=== PATIENT | female | born 1980 | race Caucasian/White ===

== ENCOUNTER → 2016-10-29 | Outpatient (CLI) | payer BC ==
[~2016-10-29] MED LIST: AMPH20TA2 PO; CHOL500049 PO; FLUO20CA42 PO; HYDR-3812 PO; HYDR-3875 PO; NITR-65 PO; PHEN-640 PO; PROG100C6 PO; PROMETHAZINE INJ 25 MG/ML (PHENERGAN) AMP ONE; TAMS0.4C98 PO
--- NOTE | 2016-10-29 14:38 | Diagnostic Imaging Report ---
INDICATION: Right flank pain. KUB 2:45 PM. Gallbladder appears to be surgically absent. There is ossification of the cartilaginous portion of the anterior ribs. Renal shadows appear normal. There are no calculi seen in either kidney. There are multiple small phleboliths in the pelvis. IMPRESSION: Unremarkable abdomen. Dictated by: Dictated on workstation # [id number]
== END ==
LOC: RAD 14:18
PROVIDERS: ATTEND Urology
DX: R10.31 Right lower quadrant pain (principal); Z90.49 Acquired absence of other specified parts of digestive tract
CPT/HCPCS: 74000

== ENCOUNTER 2016-10-30 05:51 | Outpatient (CLI) | payer BC ==
[~2016-10-30] VITALS: Ht 165.1 cm; Wt 74.8 kg
[2016-10-30] MEDS ORDERED: PROG100C6 PO ×2 (10:28)
[2016-10-30] MEDS ORDERED: CHOL500049 PO ×2 (10:28)
[2016-10-30] MEDS ORDERED: FLUO20CA42 PO ×2 (10:28)
[2016-10-31] MEDS ORDERED: HYDR-3812 PO ×2 (10:16)
[2016-10-31] MEDS ORDERED: AMPH20TA2 PO ×2 (10:16)
[2016-10-31] MEDS ORDERED: HYDR-3875 PO ×2 (12:49)
[2016-10-31] MEDS ORDERED: NITR-65 PO ×2 (12:49)
[2016-10-31] MEDS ORDERED: TAMS0.4C98 PO ×2 (12:49)
[2016-10-31] MEDS ORDERED: PHEN-640 PO ×2 (12:49)
== END 2016-10-30 10:37 ==
LOC: PREOP 05:51
PROVIDERS: ATTEND Urology
DX: Z01.818 Encounter for other preprocedural examination (principal); N20.1 Calculus of ureter

== ENCOUNTER 2016-10-31 08:42 | Day surgery (SDC) | payer BC ==
[~2016-10-31] VITALS: Ht 165.1 cm; Wt 74.8 kg
[~2016-10-31 08:42] MED LIST changes: -AMPH20TA2 PO; -HYDR-3812 PO; -HYDR-3875 PO; -NITR-65 PO; -PHEN-640 PO; -PROMETHAZINE INJ 25 MG/ML (PHENERGAN) AMP ONE; -TAMS0.4C98 PO
[2016-10-31 08:48] VITALS: BP 140/94
[2016-10-31] MEDS ORDERED: LEVOFLOXACIN 250 MG/50 ML IVPB 50 ML ONE (08:54)
[2016-10-31] MEDS ORDERED: LACTATED RINGERS 1,000 ML IV PRN (09:02)
[2016-10-31] MEDS ORDERED: CATHETER FLUSH 10 ML SYR IV PRN (09:15)
[2016-10-31] MEDS ORDERED: fentaNYL INJECTION 100 MCG/2 ML AMP IV ONE (09:15)
[2016-10-31] MEDS ORDERED: LEVOFLOXACIN 250 MG/D5W 50 ML (PRE-MIX) IV ONE (09:15)
--- NOTE | 2016-10-31 09:22 | Progress Note-Pre Operative ---
Pre-Operative Progress Note H&P Reviewed The H&P was reviewed, patient examined and no changes noted. Date Seen by Provider: Oct 31, 2016 Time Seen by Provider: : Date H&P Reviewed: Oct 31, 2016 Time H&P Reviewed: : Pre-Operative Diagnosis: RT DISTAL URETERAL STONES AND BILATERAL FLANK PAINS BHARAT MOORE MD Oct 31, 2016 9:22 am
[2016-10-31] MEDS ORDERED: ONDANSETRON 4 MG/2 ML (SDV) Z0FRAN ONE ×2 (09:32→10:29)
[2016-10-31] MEDS ORDERED: DEXAMETHASONE PF 10 MG/ML (DECADRON) VIAL ONE (09:32)
[2016-10-31] MEDS ORDERED: SEVOFLURANE (ULTANE) 15 ML INHAL SOLN ONE ×2 (09:32→10:16)
[2016-10-31] MEDS ORDERED: proPOfol 200 MG/20 ML (DIPRIVAN) VIAL IV ONE (09:32)
[2016-10-31] MEDS ORDERED: LIDOCAINE PF 2% 5 ML (XYLOCAINE) VIAL ONE (09:32)
[2016-10-31] MEDS ORDERED: MIDAZOLAM 2 MG/2 ML (VERSED) VIAL ONE (09:32)
[2016-10-31] MEDS ORDERED: LACTATED RINGERS 1,000 ML IV ONE (09:32)
[2016-10-31] MEDS ORDERED: fentaNYL INJECTION 100 MCG/2 ML AMP ONE (09:32)
--- NOTE | 2016-10-31 09:46 | Diagnostic Imaging Report ---
Supine abdomen at 9:23 AM. INDICATION: Preop for ESWL. 2 views were obtained. The previous exam of 10/29/2016, failed to show any sign of nephrolithiasis. There were multiple small calcifications in the pelvis, particularly on the left. On this exam there is still no definite evidence for a calculus overlying either kidney or the expected paths of the ureters. The calcific densities in the pelvis in the posterior are again visualized and no different. There is some gas in both the large and small bowel in a nonspecific fashion. There is no sign of a bowel obstruction. There is no mass or organomegaly. Surgical clips are seen in the right upper quadrant. The osseous structures are intact. IMPRESSION: 1. There is still no evidence for a calculus overlying either kidney. If further evaluation for nephrolithiasis is desired, then CT would be recommended. 2. There is no acute abnormality of the abdomen. Dictated by: Dictated on workstation # [id number]
[2016-10-31] MEDS ORDERED: NEOSTIGMINE (BLOXIVERZ ) 1 MG/1ML 10 ML VIAL ONE (10:16)
[2016-10-31] MEDS ORDERED: GLYCOPYRROLATE 0.2 MG/ML (ROBINUL) 2 ML VIAL ONE (10:16)
[2016-10-31] MEDS ORDERED: AMPH20TA2 PO (10:16)
[2016-10-31] MEDS ORDERED: HYDR-3812 PO (10:16)
[2016-10-31] MEDS ORDERED: morphine INJ 10 MG/ML 1ML (SYR OR VIAL) ONE (10:30)
[2016-10-31] MEDS ORDERED: HYDROmorphone (DILAUDID) 2 MG/ML VIAL ONE (10:43)
[2016-10-31] MEDS: PROMETHAZINE INJ 25 MG/ML (PHENERGAN) AMP IVP PRN ×2 (10:44→10:48)
[2016-10-31] MEDS: HYDROmorphone (DILAUDID) 2 MG/ML VIAL IVP PRN ×4 (10:50→11:20)
[2016-10-31] MEDS ORDERED: KETOROLAC 30 MG/ML VIAL ONE (10:50)
--- NOTE | 2016-10-31 10:51 | Progress Note-Post Operative ---
Post-Operative Progess Note Surgeon (s)/Dock Guard (s) Surgeon BHARAT MOORE MD Dock Guard: N/A Pre-Operative Diagnosis RT DISTAL URETERAL STONES AND BILATERAL FLANK PAINS Post-Operative Diagnosis SAME Procedure & Operative Findings Date of Procedure 10/31/16 Procedure Performed/Findings CYSTO, RT URETEROSCOPY, BILATERAL RETROGRADE UROGRAM, AND RT JJ STENT Anesthesia Type GENERAL Estimated Blood Loss Estimated blood loss (mL): N/A Specimens/Packing Specimens Removed N/A Packing: N/A BHARAT MOORE MD Oct 31, 2016 10:51 am
--- NOTE | 2016-10-31 10:52 | Discharge Inst-Urology ---
Discharge Inst-Urology Discharge Medications New, Converted, or Re-newed RX: RX on Chart Patient Instructions/Follow Up Plan Please make appointment to been seen in office in 1 week for cysto and removal of stent KUB on way home Increase oral fluids for 48 hours and then as needed. Diet and Activity as tolerated. If questions or concerns contact your physician Or seek help at emergency department. BHARAT MOORE MD Oct 31, 2016 10:52 am
[2016-10-31] MEDS ORDERED: KETOROLAC 30 MG/ML VIAL IVP ONE (11:00)
[2016-10-31] MEDS ORDERED: PHENAZOPYRIDINE 100 MG (PYRIDIUM) TABLET PO ONE (11:45)
[2016-10-31] MEDS ORDERED: NITR-65 PO (12:49)
[2016-10-31] MEDS ORDERED: HYDR-3875 PO (12:49)
[2016-10-31] MEDS ORDERED: TAMS0.4C98 PO (12:49)
[2016-10-31] MEDS ORDERED: PHEN-640 PO (12:49)
--- NOTE | 2016-10-31 13:18 | Diagnostic Imaging Report ---
INDICATION: Left ureteric stent placement Portable supine views of the abdomen are obtained. Overall bowel gas pattern is within normal limits. There is no evidence of free intraperitoneal gas or pneumatosis. There are numerous calcified phleboliths in the pelvis, greater on the left. No other definite pathologic calcification is seen although portions of the urinary tract are obscured by overlying bowel. There is a stent device coiled within the bladder lumen. IMPRESSION: Catheter coiled in the bladder lumen may represent ureteric stent. Otherwise, no acute abnormality is identified. Dictated by: Dictated on workstation # [id number]
--- NOTE | 2016-10-31 14:09 | OPERATIVE REPORT ---
DATE OF SERVICE: 10/31/2016 PREOPERATIVE DIAGNOSES: Right distal ureteral stone and bilateral flank pain. POSTOPERATIVE DIAGNOSES: Right distal ureteral stone and bilateral flank pain. OPERATIVE PROCEDURES: Cystoscopy, right ureteroscopy, bilateral retrograde urogram and insertion of right double J-stent. SURGEON: Primitivo Moore MD ANESTHESIA: General: COMPLICATIONS: None. PROCEDURE IN DETAIL: Under satisfactory general anesthesia, the patient in the lithotomy position, genitalia were prepped and draped in usual sterile fashion. A 25-Dominican cystoscope was introduced in the bladder. The bladder was essentially normal. Ureteric orifices normal in shape, size, configuration with clear efflux equally bilaterally. I went ahead and dilated the right ureteral orifice in the middle portion to accommodate a 6.9 Dominican semi-rigid ureteroscope. I went to the junction of the proximal and mid ureter bypassing the presumed area of stones and did not see any stone in antegrade and retrograde fashion. I went ahead and backed up all the way down to the very distal ureter and injected contrast. There was no filling defect and complete emptying of the ureter upon withdrawal of the ureteroscope. We went ahead and removed ureteroscope and inserted a cystoscope, performed a left retrograde. Again, no filling defect and complete emptying of the system. To be on the safe side, I elected to leave a stent on the right side in case the stones move more proximal to dilate the ureter and allow passage of the stent either around it or after we remove it if there are deep stones still there. So, I went ahead and passed a 6-Dominican 26 cm double J stent guided fluoroscopically all the way to the right renal pelvis, removed the guidewire and the stent was seen nicely proximally fluoroscopically and distally endoscopically. I emptied the bladder, removed the cystoscope. The patient tolerated the procedure and anesthesia well and was sent to recovery room in stable condition. PLAN: Remove the stent cystoscopically at the office in one week and manage accordingly. Job ID: [id number] DocumentID: [id number] Dictated Date: 10/31/2016 10:55:05 Sales Representative Facility Services Date: 10/31/2016 13:02:49 Dictated By: PRIMITIVO MOORE MD
== END 2016-10-31 13:10 | disposition home or self-care (01) ==
LOC: SDC 08:42
PROVIDERS: ATTEND Urology
DX: N20.1 Calculus of ureter (principal); F32.9 Major depressive disorder, single episode, unspecified; F41.9 Anxiety disorder, unspecified; Z79.899 Other long term (current) drug therapy
CPT/HCPCS: 74000; 84703; 87081

== ENCOUNTER → 2016-11-08 | Outpatient (CLI) | payer BC ==
[~2016-11-08] MED LIST changes: +AMPH20TA2 PO; +HYDR-3812 PO; +HYDR-3875 PO; +NITR-65 PO; +PHEN-640 PO; +TAMS0.4C98 PO
--- NOTE | 2016-11-08 17:26 | Diagnostic Imaging Report ---
INDICATION: Nephrolithiasis. EXAM: KUB at 4:07 PM FINDINGS: The gallbladder appears surgically absent. The bowel gas pattern is normal. There are calcified phleboliths in the pelvis. No calculi are seen in the region of the kidneys. IMPRESSION: No acute abnormalities are seen in the abdomen. Dictated by: Dictated on workstation # [id number]
== END ==
LOC: RAD 15:41
PROVIDERS: ATTEND Urology
DX: Z87.442 Personal history of urinary calculi (principal)
CPT/HCPCS: 74000

== ENCOUNTER 2016-11-12 14:01 | Emergency (ER) | payer BC ==
[~2016-11-12] VITALS: Ht 165.1 cm; Wt 74.8 kg
[2016-11-12] MEDS ORDERED: ONDANSETRON 4 MG/2 ML (SDV) Z0FRAN IVP ONE (14:15)
[2016-11-12] MEDS ORDERED: NS 100 ML (IVPB) BAG IV ONE (14:15)
[2016-11-12] MEDS ORDERED: NS IV 1000 ML 1,000 ML IV SCH (14:15)
[2016-11-12] MEDS ORDERED: SULF1TAB35 PO (14:15)
[2016-11-12] MEDS ORDERED: KETOROLAC 30 MG/ML VIAL IVP ONE (14:15)
[2016-11-12] MEDS ORDERED: IOHEXOL 350 MG/ML 100 ML (OMNIPAQUE 350) VIAL IV ONE (14:15)
[2016-11-12 14:25] LABS: BILIRUBIN,URINE NEGATIVE (NEGATIVE); KETONES,URINE NEGATIVE (NEGATIVE); LEUKOCYTE ESTERASE ,URINE NEGATIVE (NEGATIVE); NITRITE,URINE NEGATIVE (NEGATIVE); PH,URINE 5 (5-9); PROTEIN,URINE NEGATIVE (NEGATIVE); UROBILINOGEN,URINE NORMAL (NORMAL)
--- NOTE | 2016-11-12 14:25 | ED Back Pain ---
General Chief Complaint: Back Problems Stated Complaint: KIDNEY STONES Nursing Triage Note: R FLANK PAIN X1 MONTH. HAS BEEN TREATED BY ER AND BY [facility] WITH LITTLE TO NO IMPROVEMENT. HAD RENAL STENT PLACED THAT "FELL OUT". Nursing Sepsis Screen: No Definite Risk Source of Information: Patient Exam Limitations: No Limitations History of Present Illness Time Seen by Provider: 14:23 Initial Comments To ER with right flank pain for the better half of this month. She was sent here from [place] by Dr. Moore. She had a ureteroscopy with stone basketing on 10/31/16. A stent was placed. The stent follow-up next-day patient states. She's continued to have constant but waxing and waning right flank pain with nausea and vomiting since then. Severity: Moderate Associated Symptoms: No lower back pain Allergies and Home Medications Allergies Coded Allergies: cephalexin (Verified Allergy, Intermediate, HIVES, 10/30/16) Home Medications Cholecalciferol (Vitamin D3) 50,000 Unit Capsule, 50,000 UNIT PO WEEKLY, ( Reported) Dextroamphetamine/Amphetamine 20 Mg Tablet, 20 MG PO DAILY, #1 Prescribed by: AIDEE QUINN on 10/31/16 1016 Fluoxetine HCl 20 Mg Capsule, 20 MG PO DAILY, (Reported) Hydrocodone/Acetaminophen 1 Each Tablet, 1-2 EACH PO Q4H, #30 Prescribed by: AIDEE QUINN on 10/31/16 1249 Phenazopyridine HCl 200 Mg Tablet, 1 TAB PO TID PRN for SPASMS, #30 Prescribed by: AIDEE QUINN on 10/31/16 1249 Progesterone,Micronized 100 Mg Capsule, 100 MG PO DAILY, (Reported) Sulfamethoxazole/Trimethoprim 1 Each Tablet, 1 EACH PO, (Reported) Constitutional: see HPI, chills, No fever EENTM: see HPI Respiratory: no symptoms reported Cardiovascular: no symptoms reported Gastrointestinal: nausea Genitourinary: see HPI, dysuria, pain Musculoskeletal: no symptoms reported Skin: no symptoms reported Past Mjamezd-Fonhra-Nszdoq Hx Patient Social History Alcohol Use: Denies Use Recreational Drug Use: No Smoking Status: Never a Smoker Recent Foreign Travel: No Contact w/Someone Who Travel: No Recent Infectious Disease Expo: No Recent Hopitalizations: No Immunizations Up To Date Date of Influenza Vaccine: Jan 23, 2016 Seasonal Allergies Seasonal Allergies: Yes Surgeries History of Surgeries: Yes (CS X2, SINUS SURGERY) Surgeries: Section, Gallbladder, Renal Respiratory History of Respiratory Disorde: No Cardiovascular History of Cardiac Disorders: No Neurological History of Neurological Disord: Yes Neurological Disorders: Headaches /Migraines Reproductive System Sexually Transmitted Disease: No HIV/AIDS: No Female Reproductive Disorders: Denies Genitourinary Genitourinary Disorders: Kidney Stones Gastrointestinal History of Gastrointestinal Di: Yes Gastrointestinal Disorders: Chronic Diarrhea Musculoskeletal History of Musculoskeletal Dis: No Endocrine History of Endocrine Disorders: No HEENT Loss of Vision: Bilateral Hearing Impairment: Denies Cancer History of Cancer: No Psychosocial History of Psychiatric Problem: Yes Behavioral Health Disorders: Anxiety, Depression Integumentary History of Skin or Integumenta: No Blood Transfusions History of Blood Disorders: No Adverse Reaction to a Blood Tr: No Physical Exam Vital Signs Vital Sign - Last 12Hours 11/12/16 14:06 Temp 97.2 Pulse 77 Resp 18 B/P (MAP) 140/98 Pulse Ox 99 Capillary Refill : Less Than 3 Seconds General Appearance: No Apparent Distress, WD/WN HEENT: PERRL/EOMI, TMs Normal Neck: Full Range of Motion, Normal Inspection Cardiovascular: Regular Rate, Rhythm, Normal Peripheral Pulses Respiratory: Normal Breath Sounds, No Accessory Muscle Use, No Respiratory Distress Gastrointestinal: Normal Bowel Sounds, Non Tender, Soft Neurologic/Psychiatric: Alert, Oriented x3, No Motor/Sensory Deficits Skin: Normal Color, Warm/Dry Progress/Results/Core Measures Results/Orders Lab Results Laboratory Tests Test 11/12/16 14:10 11/12/16 14:15 Range/Units Urine Color YELLOW Urine Clarity CLEAR Urine pH 5 5-9 Urine Specific [place] 1.020 1.016-1.022 Urine Protein NEGATIVE NEGATIVE Urine Glucose (UA) NEGATIVE NEGATIVE Urine Ketones NEGATIVE NEGATIVE Urine Nitrite NEGATIVE NEGATIVE Urine Bilirubin NEGATIVE NEGATIVE Urine Urobilinogen NORMAL NORMAL MG/DL Urine Leukocyte Esterase NEGATIVE NEGATIVE Urine RBC (Auto) NEGATIVE NEGATIVE Urine RBC NONE /HPF Urine WBC NONE /HPF Urine Squamous Epithelial Cells 5-10 /HPF Urine Crystals NONE /LPF Urine Bacteria NEGATIVE /HPF Urine Casts NONE /LPF Urine Mucus NEGATIVE /LPF Urine Culture Indicated NO White Blood Count 6.0 4.3-11.0 10^3/uL Red Blood Count 4.69 4.35-5.85 10^6/uL Hemoglobin 13.9 11.5-16.0 G/DL Hematocrit 41 35-52 % Mean Corpuscular Volume 88 80-99 FL Mean Corpuscular Hemoglobin 30 25-34 PG Mean Corpuscular Hemoglobin Concent 34 32-36 G/DL Red Cell Distribution Width 13.6 10.0-14.5 % Platelet Count 231 130-400 10^3/uL Mean Platelet Volume 10.2 7.4-10.4 FL Neutrophils (%) (Auto) 61 42-75 % Lymphocytes (%) (Auto) 29 12-44 % Monocytes (%) (Auto) 9 0-12 % Eosinophils (%) (Auto) 1 0-10 % Basophils (%) (Auto) 0 0-10 % Neutrophils # (Auto) 3.6 1.8-7.8 X 10^3 Lymphocytes # (Auto) 1.7 1.0-4.0 X 10^3 Monocytes # (Auto) 0.6 0.0-1.0 X 10^3 Eosinophils # (Auto) 0.0 0.0-0.3 10^3/uL Basophils # (Auto) 0.0 0.0-0.1 10^3/uL Sodium Level 138 135-145 MMOL/L Potassium Level 4.2 3.6-5.0 MMOL/L Chloride Level 106 98-107 MMOL/L Carbon Dioxide Level 21 21-32 MMOL/L Anion Gap 11 5-14 MMOL/L Blood Urea Nitrogen 14 7-18 MG/DL Creatinine 0.88 0.60-1.30 MG/DL Estimat Glomerular Filtration Rate > 60 BUN/Creatinine Ratio 16 Glucose Level 87 70-105 MG/DL Calcium Level 9.5 8.5-10.1 MG/DL Total Bilirubin 0.6 0.1-1.0 MG/DL Aspartate Amino Transf (AST/SGOT) 25 5-34 U/L Alanine Aminotransferase (ALT/SGPT) 129 H 0-55 U/L Alkaline Phosphatase 101 40-136 U/L Total Protein 7.3 6.4-8.2 GM/DL Albumin 4.4 3.2-4.5 GM/DL My Orders Orders - ANU BARRY SOC[employer] MARKETING ANALYST Cbc With Automated Diff (11/12/16 14:05) Comprehensive Metabolic Panel (11/12/16 14:05) Ua Culture If Indicated (11/12/16 14:05) Urine Bedside (11/12/16 14:05) Saline Lock/Iv-Start (11/12/16 14:05) Ct Abdomen/Pelvis W Wo (11/12/16 14:05) Iohexol Injection (Omnipaque 350 Mg/Ml 1 (11/12/16 14:15) Ns (Ivpb) (Sodium Chloride 0.9% Ivpb Bag (11/12/16 14:15) Ketorolac Injection (Toradol Injection) (11/12/16 14:15) Ondansetron Injection (Zofran Injectio (11/12/16 14:15) Ns Iv 1000 Ml (Sodium Chloride 0.9%) (11/12/16 14:15) Fentanyl Injection (Sublimaze Injection (11/12/16 14:30) Medications Given in ED Current Medications Medications Dose Ordered Sig/Zoltan Route Start Time Stop Time Status Last Admin Dose Admin Iohexol 100 ml ONCE ONCE IV 11/12/16 14:15 11/12/16 14:16 DC 11/12/16 14:42 100 ML Ketorolac Tromethamine 30 mg ONCE ONCE IVP 11/12/16 14:15 11/12/16 14:16 DC 11/12/16 14:25 30 MG Ondansetron HCl 4 mg ONCE ONCE IVP 11/12/16 14:15 11/12/16 14:16 DC 11/12/16 14:25 4 MG Sodium Chloride 100 ml ONCE ONCE IV 11/12/16 14:15 11/12/16 14:16 DC 11/12/16 14:43 80 ML Vital Signs/I&O Vital Sign - Last 12Hours 11/12/16 14:06 Temp 97.2 Pulse 77 Resp 18 B/P (MAP) 140/98 Pulse Ox 99 Blood Pressure Mean: 112 Diagnostic Imaging Diagonstic Imaging: CT Comments NAME: MAKSIM SAUCEDA [facility] REC#: [id number] PT STATUS: REG ER : 1980 PHYSICIAN: ANU BARRY APRN ADMIT DATE: 11/12/16/ER Draft Date of Exam:11/12/16 CT ABDOMEN/PELVIS W WO PROCEDURE: CT abdomen and pelvis with and without contrast. TECHNIQUE: Precontrast acquisitions were acquired through the abdomen and pelvis. Multiple contiguous axial images were obtained through the abdomen and pelvis after the administration of intravenous contrast. INDICATION: Right flank pain and nephrolithiasis with questionable UTI. FINDINGS: The heart size is normal. The lung bases are clear. The liver is normal in size without focal lesions. The gallbladder is surgically absent. There is no biliary ductal dilatation. The spleen is unremarkable. The pancreas and adrenal glands are unremarkable. There is no evidence of nephrolithiasis or obstructive uropathy. Both kidneys demonstrate normal perfusion. There is no definitive CT evidence of pyelonephritis. The aorta is nonaneurysmal. The bowel gas pattern is nonspecific. The appendix is unremarkable. The bladder is normal. There is no pelvic mass or adenopathy. There is a questionable right ovarian cyst. The osseous structures are unremarkable. IMPRESSION: No evidence of nephrolithiasis, pyelonephritis, or appendicitis. Questionable small right ovarian cyst. No other acute abnormality in the abdomen or pelvis. Dictated on workstation # [id number] Dict: 11/12/16 1507 Trans: 11/12/16 1528 [id number] Interpreted by: RICHARD NUNES Electronically signed by: Departure Communication (Admissions) Progress Notes 1539- the patient was given the normal results of her urine and lab. She states "that is fucking ridiculous!. 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 She states "you're nurse is a bitch, I'm going crazy!". I advised her this behavior would not be tolerated and she would be discharged. SHe states "no you get back in here!" Impression Impression: Primary Impression: nonspecific right flank pain Disposition: 01 HOME, SELF-CARE Condition: Stable Departure-Patient Inst. Decision time for Depature: 15:35 Referrals: FRED MONAE MD (PCP/Family) Primary Care Physician Patient Instructions: Flank Pain Add. Discharge Instructions: 1. Follow-up with your regular doctor for further evaluation of the source of your pain 2. Return to ER for any concerns 3. All discharge instructions reviewed with patient and/or family. Voiced understanding. Copy Copies To 1: BHARAT MOORE MD, PETER J APRN Nov 12, 2016 14:25
[2016-11-12] MEDS ORDERED: fentaNYL INJECTION 100 MCG/2 ML AMP IVP ONE (14:30)
[2016-11-12 14:34] LABS: BASOPHILS % (AUTO) 0 % (0-10); EOSINOPHILS % (AUTO) 1 % (0-10); LYMPHOCYTES # (AUTO) 1.7 X 10^3 (1.0-4.0); LYMPHOCYTES % (AUTO) 29 % (12-44); MEAN CORPUSCULAR HEMOGLOBIN 30 PG (25-34); MEAN CORPUSCULAR HGB CONC 34 G/DL (32-36); MEAN CORPUSCULAR VOLUME 88 FL (80-99); MEAN PLATELET VOLUME 10.2 FL (7.4-10.4); MONOCYTES # (AUTO) 0.6 X 10^3 (0.0-1.0); MONOCYTES % (AUTO) 9 % (0-12); NEUTROPHILS # (AUTO) 3.6 X 10^3 (1.8-7.8); NEUTROPHILS % (AUTO) 61 % (42-75); PLATELET COUNT 231 10^3/uL (130-400); RED BLOOD COUNT 4.69 10^6/uL (4.35-5.85); RED CELL DISTRIBUTION WIDTH 13.6 % (10.0-14.5)
[2016-11-12 14:46] LABS: ALANINE AMINOTRANSFERASE 129 U/L (0-55); ALBUMIN 4.4 GM/DL (3.2-4.5); ANION GAP 11 MMOL/L (5-14); ASPARTATE AMINO TRANSFERASE 25 U/L (5-34); BILIRUBIN,TOTAL 0.6 MG/DL (0.1-1.0); BLOOD UREA NITROGEN 14 MG/DL (7-18); BUN/CREATININE RATIO 16; CALCIUM 9.5 MG/DL (8.5-10.1); CARBON DIOXIDE 21 MMOL/L (21-32); CHLORIDE 106 MMOL/L (98-107); CREATININE SERUM 0.88 MG/DL (0.60-1.30); GFR ESTIMATED > 60; GLUCOSE 87 MG/DL (70-105); POTASSIUM 4.2 MMOL/L (3.6-5.0); SODIUM 138 MMOL/L (135-145); TOTAL PROTEIN 7.3 GM/DL (6.4-8.2)
--- NOTE | 2016-11-12 15:29 | Diagnostic Imaging Report ---
PROCEDURE: CT abdomen and pelvis with and without contrast. TECHNIQUE: Precontrast acquisitions were acquired through the abdomen and pelvis. Multiple contiguous axial images were obtained through the abdomen and pelvis after the administration of intravenous contrast. INDICATION: Right flank pain and nephrolithiasis with questionable UTI. FINDINGS: The heart size is normal. The lung bases are clear. The liver is normal in size without focal lesions. The gallbladder is surgically absent. There is no biliary ductal dilatation. The spleen is unremarkable. The pancreas and adrenal glands are unremarkable. There is no evidence of nephrolithiasis or obstructive uropathy. Both kidneys demonstrate normal perfusion. There is no definitive CT evidence of pyelonephritis. The aorta is nonaneurysmal. The bowel gas pattern is nonspecific. The appendix is unremarkable. The bladder is normal. There is no pelvic mass or adenopathy. There is a questionable right ovarian cyst. The osseous structures are unremarkable. IMPRESSION: No evidence of nephrolithiasis, pyelonephritis, or appendicitis. Questionable small right ovarian cyst. No other acute abnormality in the abdomen or pelvis. Dictated by: Dictated on workstation # [id number]
[2016-11-12 15:50] VITALS: BP 0/0
== END 2016-11-12 15:47 | disposition home or self-care (01) ==
LOC: EDUNIT# 14:01 → ER 14:04
DX: R10.9 Unspecified abdominal pain (principal); F41.9 Anxiety disorder, unspecified; F32.9 Major depressive disorder, single episode, unspecified; K52.9 Noninfective gastroenteritis and colitis, unspecified; G43.909 Migraine, unspecified, not intractable, without status migrainosus; Z87.442 Personal history of urinary calculi; Z87.59 Personal history of other complications of pregnancy, childbirth and the puerperium; Z96.0 Presence of urogenital implants
CPT/HCPCS: 36415; 74178; 80053; 81000; 84703; 85025; 96374; 96375

== ENCOUNTER → 2019-11-10 | Outpatient (CLI) | payer OTHER ==
[~2019-11-10] MED LIST changes: +ACHD5005 PO; -HYDR-3812 PO; +PROG100C11 PO; -PROG100C6 PO; +SULF1TAB35 PO; -TAMS0.4C98 PO; +TMSL.4C PO
== END ==
LOC: LAB FS 11:15
PROVIDERS: ATTEND Family Medicine
DX: R09.89 Other specified symptoms and signs involving the circulatory and respiratory systems (principal); Z20.828 Contact with and (suspected) exposure to other viral communicable diseases
CPT/HCPCS: 87635

== ENCOUNTER 2020-03-22 16:54 | Emergency (ER) | payer BC, OTHER ==
[~2020-03-22] VITALS: Ht 165 cm; Wt 85.0 kg
[2020-03-22 17:00] VITALS: BP 135/90
--- NOTE | 2020-03-22 17:36 | Diagnostic Imaging Report ---
INDICATION: COVID positive. Shortness of breath. FINDINGS: The lungs are well-aerated. There are no consolidated infiltrates at this time. Mild interstitial infiltrates are noted in the lung bases bilaterally. The heart is not enlarged. No evidence of pulmonary edema. No pneumothorax or pleural effusion. No bony abnormalities. IMPRESSION: Mild interstitial infiltrate noted in the lung bases bilaterally. Dictated by: Dictated on workstation # [id number]
--- NOTE | 2020-03-22 17:36 | ED Respiratory ---
General Chief Complaint: Respiratory Problems Stated Complaint: COVID+,PNEUMONIA,DYSPNEA Nursing Triage Note: PT REPORTS SOB WITH EXERTION AND UC CHEST XRAY SHOWED POSSIBLE PNEUMONIA. PT WAS SENT BY EBEN BECKFORD. PT REPORTS A MILD FEVER AT HOME. Source: patient Exam Limitations: no limitations History of Present Illness Date Seen by Provider: Mar 22, 2020 Time Seen by Provider: 17:00 Initial Comments 39-year-old female presents with symptoms related to COVID-19 infection. Symptom onset 8 days ago with upper respiratory and lower respiratory symptoms, cough and congestion with intermittent shortness of air. Diagnosed a few days later and was started on dexamethasone 6 mg daily as well as aspirin 81 mg daily, using an albuterol inhaler as needed as well as a steroid inhaler. Also taking ivermectin and has completed the first 2 doses of 0.2mg/kg. After taking a shower today she felt SOA and checked a pulse ox and it was in the mid 80's. Returned to 90's after a brief rest. Allergies and Home Medications Allergies Coded Allergies: cephalexin (Verified Allergy, Intermediate, HIVES, 10/30/16) Home Medications Cholecalciferol (Vitamin D3) 50,000 Unit Capsule, 50,000 UNIT PO WEEKLY, (Reported) Dextroamphetamine/Amphetamine 20 Mg Tablet, 20 MG PO DAILY Prescribed by: AIDEE QUINN on 10/31/16 1016 Fluoxetine HCl 20 Mg Capsule, 20 MG PO DAILY, (Reported) Hydrocodone/Acetaminophen 1 Each Tablet, 1-2 EACH PO Q4H Prescribed by: AIDEE QUINN on 10/31/16 1249 Phenazopyridine HCl 200 Mg Tablet, 1 TAB PO TID PRN for SPASMS Prescribed by: AIDEE QUINN on 10/31/16 1249 Progesterone,Micronized 100 Mg Capsule, 100 MG PO DAILY, (Reported) Patient Home Medication List Home Medication List Reviewed: Yes Review of Systems Review of Systems Constitutional: No chills, No fever, No malaise, No weakness EENTM: no symptoms reported Respiratory: cough, dyspnea on exertion, short of breath; No stridor, No wheezing Cardiovascular: No chest pain, No edema, No palpitations, No syncope Gastrointestinal: No abdominal pain, No loss of appetite, No nausea, No vomiting Skin: No change in color, No rash Psychiatric/Neurological: Denies Headache, Denies Numbness, Denies Paresthesia, Denies Weakness Past Dfaunsx-Yftmwx-Hpambp Hx Past Med/Social Hx: Reviewed Nursing Past Med/Soc Hx Patient Social History Alcohol Use: Denies Use Recreational Drug Use: No Smoking Status: Never a Smoker Recent Foreign Travel: No Contact w/Someone Who Travel: No Recent Infectious Disease Expo: Yes Recent Hopitalizations: No Physical Abuse: No Sexual Abuse: No Mistreated: No Fear: No Immunizations Up To Date Date of Influenza Vaccine: Jan 23, 2016 Seasonal Allergies Seasonal Allergies: No Past Medical History Surgeries: Yes (sinus surgery) Section, Gallbladder Respiratory: No Cardiac: Yes Hypertension Neurological: No Headaches /Migraines Female Reproductive Disorders: Denies Sexually Transmitted Disease: No HIV/AIDS: No Genitourinary: No Kidney Stones Gastrointestinal: No Chronic Diarrhea Musculoskeletal: No Endocrine: No HEENT: No Loss of Vision: Bilateral Hearing Impairment: Denies Cancer: No Psychosocial: Yes Depression Integumentary: No Blood Disorders: No Adverse Reaction/Blood Tranf: No Physical Exam Vital Signs - First Documented 03/22/20 17:00 Temp 36.5 Pulse 122 Resp 20 B/P (MAP) 135/90 (105) O2 Delivery Room Air Capillary Refill : Less Than 3 Seconds Height: 5'5.00" Weight: 165lbs. 0.0oz. 74.415355kv; 31.00 BMI Method:Stated General Appearance: WD/WN, no apparent distress HEENT: PERRL/EOMI, normal ENT inspection Neck: non-tender, supple Respiratory: chest non-tender, lungs clear, normal breath sounds, no respiratory distress, no accessory muscle use Cardiovascular: regular rate, rhythm, no edema, no gallop, no JVD Gastrointestinal: non tender, soft Extremities: normal range of motion, no pedal edema, no calf tenderness Neurologic/Psychiatric: alert, normal mood/affect, oriented x 3 Skin: normal color, warm/dry Progress/Results/Core Measures Suspected Sepsis Recent Fever Within 48 Hours: Yes Infection Criteria Present: Documented Infection New/Unexplained Altered Menta: No Sepsis Screen: Possible Severe Sepsis Risk SIRS Temperature: Pulse: 122 Respiratory Rate: 20 Blood Pressure 135 /90 Mean: 105 Results/Orders My Orders Orders - GEREMIAS ESQUEDA DO Chest 1 View Ap/Pa Only (03/22/20 17:02) Vital Signs/I&O 03/22/20 17:00 Temp 36.5 Pulse 122 Resp 20 B/P (MAP) 135/90 (105) O2 Delivery Room Air Capillary Refill : Less Than 3 Seconds Blood Pressure Mean: 105 Progress Note : Progress Note Well-appearing, no distress, oxygen saturations upper 90 percent on room air. Noted slight tachycardia without chest pain or shortness of air. Chest x-ray with mild patchy infiltrates consistent with COVID. Patient has been on a good medical regimen including ivermectin and steroids and seems to be progressing well only 1 week into the illness. Reassurance given, she was not taking any zinc and strongly encouraged her to start taking 100 mg daily today. Advised prompt follow-up if becoming increasingly short of air, feel lightheaded or dizzy or persistent oxygen desaturations especially at rest. 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 Departure Impression Primary Impression: COVID-19 Disposition: 01 HOME, SELF-CARE Condition: Stable Departure-Patient Inst. Decision time for Depature: 17:35 Referrals: FRED MONAE MD (PCP/Family) Primary Care Physician Patient Instructions: Coronavirus Disease 2019 (COVID-19) (DC) Add. Discharge Instructions: Take the following daily: Zinc 100mg Vitamin C 2,000mg Vitamin D 4,000iu Melatonin 10mg nightly All discharge instructions reviewed with patient and/or family. Voiced understanding. GEREMIAS ESQUEDA DO Mar 22, 2020 17:36
== END 2020-03-22 17:40 | disposition home or self-care (01) ==
LOC: EDUNIT# 16:54 → ER FS 16:56
DX: U07.1 COVID-19 (principal); I10 Essential (primary) hypertension; G43.909 Migraine, unspecified, not intractable, without status migrainosus; F32.9 Major depressive disorder, single episode, unspecified; Z88.1 Allergy status to other antibiotic agents
CPT/HCPCS: 71045

== ENCOUNTER 2020-03-23 15:23 | Inpatient (IN) | payer OTHER ==
[~2020-03-23] VITALS: Ht 165.1 cm; Wt 104.5 kg
[2020-03-23 16:23] VITALS: BP 119/71
[2020-03-23] MEDS ORDERED: REMDESIVIR INJ 200 MG in NS (IVPB) 210 ML IV NR (16:30)
[2020-03-23] MEDS ORDERED: CATHETER FLUSH 10 ML SYR IV PRN (16:45)
[2020-03-23] MEDS ORDERED: ALPRAZolam 1 MG (XANAX) TAB PO PRN (16:45)
[2020-03-23] MEDS ORDERED: ONDANSETRON 4 MG/2 ML (SDV) Z0FRAN IVP PRN ×2 (16:45→17:30)
[2020-03-23] MEDS: NS IV 1000 ML 1,000 ML IV SCH (16:53)
[2020-03-23] MEDS: ALPRAZolam 0.5 MG (XANAX) TAB PO PRN (16:54)
[2020-03-23] MEDS: KETOROLAC 30 MG/ML VIAL IVP PRN (16:54)
[2020-03-23] MEDS: guaiFENesin SYRUP 100 MG/5 ML 10 ML (ROBITUSSIN SF) PO PRN ×2 (16:54→21:34)
[2020-03-23] MEDS: ENOXAPARIN 40 MG/0.4 ML (LOVENOX) SYR SC SCH (16:58)
[2020-03-23 17:14] LABS: BASOPHILS % (AUTO) 0 % (0-10); EOSINOPHILS % (AUTO) 0 % (0-10); HEMATOCRIT 38 % (35-52); HEMOGLOBIN 12.9 g/dL (11.5-16.0); LYMPHOCYTES # (AUTO) 0.8 10^3/uL (1.0-4.0); LYMPHOCYTES % (AUTO) 11 % (12-44); MEAN CORPUSCULAR HEMOGLOBIN 29 pg (25-34); MEAN CORPUSCULAR HGB CONC 34 g/dL (32-36); MEAN CORPUSCULAR VOLUME 85 fL (80-99); MEAN PLATELET VOLUME 9.3 fL (9.0-12.2); MONOCYTES # (AUTO) 0.2 10^3/uL (0.0-1.0); MONOCYTES % (AUTO) 3 % (0-12); NEUTROPHILS # (AUTO) 5.7 10^3/uL (1.8-7.8); NEUTROPHILS % (AUTO) 85 % (42-75); PLATELET COUNT 221 10^3/uL (130-400); WHITE BLOOD COUNT 6.8 10^3/uL (4.3-11.0)
[2020-03-23 17:21] LABS: ALBUMIN 3.7 GM/DL (3.2-4.5); CHLORIDE 99 MMOL/L (98-107); POTASSIUM 3.6 MMOL/L (3.6-5.0); SODIUM 132 MMOL/L (135-145)
[2020-03-23 17:22] LABS: CALCIUM 8.4 MG/DL (8.5-10.1)
[2020-03-23 17:23] LABS: GLUCOSE 104 MG/DL (70-105)
[2020-03-23 17:24] LABS: TOTAL PROTEIN 6.8 GM/DL (6.4-8.2)
[2020-03-23 17:25] LABS: BILIRUBIN,TOTAL 0.3 MG/DL (0.1-1.0); CARBON DIOXIDE 19 MMOL/L (21-32)
[2020-03-23 17:27] LABS: ALKALINE PHOSPHATASE 55 U/L (40-136); CREATININE SERUM 0.68 MG/DL (0.60-1.30); GFR ESTIMATED > 60
[2020-03-23 17:28] LABS: BUN/CREATININE RATIO 19
[2020-03-23 17:30] LABS: ALANINE AMINOTRANSFERASE 26 U/L (0-55)
[2020-03-23] MEDS ORDERED: ZOLPIDEM 5 MG (AMBIEN) TAB PO PRN (17:30)
[2020-03-23 19:21] VITALS: BP 135/90
[2020-03-23 20:09] VITALS: BP 112/57
--- NOTE | 2020-03-23 20:42 | NUR ---
DR. OTTO CALLED AND UPDATED ON PT STATUS. PT IS SOB WITHOUT EXSERTION. PT O2SAT AT 87 ON 2LITERS. RT ROOM INCREASE OXYGEN TO 5LITER. O2 SAT IS NOW 91. INFORMED THIS RN IS MOVING PT TO A NEGATIVE PRESSURE ROOM AND MAY NEED VAPOTHERM. STATES UNDERSTANDING AND ORDER RECEIVED FOR VAPOTHERM.
[2020-03-23] MEDS ORDERED: RT-ALBUTEROL INHALER HFA (VENTOLIN HFA) 18 GM IH PRN (20:45)
[2020-03-23] MEDS ORDERED: RT-ALBUTEROL INHALER HFA (VENTOLIN HFA) 18 GM IH SCH (21:00)
[2020-03-23] MEDS: ACETAMINOPHEN 500 MG TAB (TYLENOL) PO PRN (21:34)
[2020-03-23] MEDS: MELATONIN 3 MG TABLET PO SCH (21:34)
[2020-03-23] MEDS ORDERED: CATHETER FLUSH 10 ML SYR IV SCH (22:00)
[2020-03-23] MEDS: RT-ALBUTEROL INHALER HFA (VENTOLIN HFA) 18 GM IH SCH (22:14)
[2020-03-23 23:58] VITALS: BP 116/56
[2020-03-24] VITALS (10 sets, daily range): BP systolic 93–123; BP diastolic 68–79
[2020-03-24] MEDS: NS IV 1000 ML 1,000 ML IV SCH ×2 (00:26→06:53)
[2020-03-24] MEDS: KETOROLAC 30 MG/ML VIAL IVP PRN ×5 (00:27→20:03)
[2020-03-24] MEDS: RT-ALBUTEROL INHALER HFA (VENTOLIN HFA) 18 GM IH SCH ×5 (04:28→19:26)
[2020-03-24] MEDS: guaiFENesin SYRUP 100 MG/5 ML 10 ML (ROBITUSSIN SF) PO PRN ×3 (04:28→17:56)
[2020-03-24] MEDS: ALPRAZolam 0.5 MG (XANAX) TAB PO PRN ×2 (05:12→20:02)
[2020-03-24 06:16] LABS: ALBUMIN 3.3 GM/DL (3.2-4.5); CHLORIDE 101 MMOL/L (98-107); POTASSIUM 3.2 MMOL/L (3.6-5.0); SODIUM 137 MMOL/L (135-145)
[2020-03-24 06:17] LABS: CALCIUM 8.1 MG/DL (8.5-10.1)
[2020-03-24 06:18] LABS: GLUCOSE 113 MG/DL (70-105)
[2020-03-24 06:19] LABS: TOTAL PROTEIN 6.1 GM/DL (6.4-8.2)
[2020-03-24 06:20] LABS: CARBON DIOXIDE 21 MMOL/L (21-32)
[2020-03-24 06:21] LABS: BILIRUBIN,TOTAL 0.3 MG/DL (0.1-1.0)
[2020-03-24 06:22] LABS: ALKALINE PHOSPHATASE 55 U/L (40-136); CREATININE SERUM 0.76 MG/DL (0.60-1.30); GFR ESTIMATED > 60
[2020-03-24 06:23] LABS: BUN/CREATININE RATIO 24
[2020-03-24 06:25] LABS: ALANINE AMINOTRANSFERASE 28 U/L (0-55)
[2020-03-24] MEDS: FLUoxetine HCL 20 MG (PROzac) CAP PO SCH (08:41)
--- NOTE | 2020-03-24 08:42 | Diagnostic Imaging Report ---
INDICATION: Shortness of air. COVID positive patient. COMPARISON: 03/22/2020 FINDINGS: Single frontal radiographic view of the chest was obtained and demonstrates significant interval development of scattered alveolar opacities superimposed on background diffuse interstitial prominence. There is no large effusion or pneumothorax. Lungs also show low inspiratory volumes. Cardiac silhouette and pulmonary vasculature are within normal limits. Osseous structures show no gross acute abnormalities. IMPRESSION: 1. Interval progression of significant bilateral diffuse infiltrates. Continued follow-up is advised. Dictated by: Dictated on workstation # [id number]
[2020-03-24] MEDS ORDERED: dexAMETHasone 6 MG TAB (DECADRON) PO SCH (09:00)
[2020-03-24] MEDS ORDERED: LORazepam INJ 2 MG/ML (ATIVAN) VIAL ONE (09:46)
--- NOTE | 2020-03-24 09:51 | NUR ---
this rn phoned dr. westbrook and informed of patient's anxiety and that we need the ativan order he had informed ole alonzo he would provide. this rn took telephone order for one time 1mg Ativan iv order.
--- NOTE | 2020-03-24 10:13 | Pulmonary Consultation ---
History of Present Illness History of Present Illness Date Seen by Provider: Mar 24, 2020 Time Seen by Provider: 10:08 Date of Admission Allergies and Home Medications Allergies Coded Allergies: cephalexin (Verified Allergy, Intermediate, HIVES, 10/30/16) Home Medications Cholecalciferol (Vitamin D3) 50,000 Unit Capsule, 50,000 UNIT PO WEEKLY, (Reported) Dextroamphetamine/Amphetamine 20 Mg Tablet, 20 MG PO DAILY Prescribed by: AIDEE QUINN on 10/31/16 1016 Fluoxetine HCl 20 Mg Capsule, 20 MG PO DAILY, (Reported) Hydrocodone/Acetaminophen 1 Each Tablet, 1-2 EACH PO Q4H Prescribed by: AIDEE QUINN on 10/31/16 1249 Phenazopyridine HCl 200 Mg Tablet, 1 TAB PO TID PRN for SPASMS Prescribed by: AIDEE QUINN on 10/31/16 1249 Progesterone,Micronized 100 Mg Capsule, 100 MG PO DAILY, (Reported) Past Rlzyrjs-Tnpzkv-Aoihhk Hx Patient Social History Alcohol Use: Occasionally Uses Alcohol Beverage of Choice: Beer, Wine Recreational Drug Use: No Recent Foreign Travel: No Contact w/Someone Who Travel: No Recent Infectious Disease Expo: Yes Recent Hopitalizations: No Immunizations Up To Date PED Vaccines UTD: No Date of Influenza Vaccine: Nov 23, 2019 Seasonal Allergies Seasonal Allergies: Yes Past Medical History Surgeries: Yes Section, Gallbladder Respiratory: No Cardiac: Yes Hypertension Neurological: No Headaches /Migraines Female Reproductive Disorders: Denies Sexually Transmitted Disease: No HIV/AIDS: No Genitourinary: No Kidney Stones Gastrointestinal: No Chronic Diarrhea Musculoskeletal: No Endocrine: No HEENT: No Loss of Vision: Bilateral Hearing Impairment: Denies Cancer: No Psychosocial: Yes Anxiety, PTSD, Depression Integumentary: No Blood Disorders: No Adverse Reaction/Blood Tranf: No Review of Systems Time Seen by Provider: 10:12 Sepsis Event Evaluation Height, Weight, BMI Height: 5'5.00" Weight: 165lbs. 0.0oz. 74.530762jj; 38.33 BMI Method:Stated Exam Exam Vital Signs Date Time Temp Pulse Resp B/P (MAP) Pulse Ox O2 Delivery O2 Flow Rate FiO2 03/24/20 08:39 37.5 03/24/20 07:50 38.2 109 22 115/79 (91) 94 Vapotherm 40.00 70.00 03/24/20 06:43 91 Vapotherm 40.00 70 03/24/20 04:51 95 Vapotherm 03/24/20 04:11 37.2 96 21 120/70 (87) 90 Nasal Cannula 2.00 03/23/20 23:58 37.2 105 21 116/56 (76) 92 Nasal Cannula 2.00 03/23/20 22:14 92 Nasal Cannula 5.00 03/23/20 21:00 Nasal Cannula 5.00 03/23/20 20:18 87 Nasal Cannula 1.00 03/23/20 20:09 37.4 99 20 112/57 (75) 93 Nasal Cannula 2.00 03/23/20 19:21 36.5 122 87 28 03/23/20 17:44 Nasal Cannula 2.00 03/23/20 17:36 37.9 03/23/20 16:54 38.8 03/23/20 16:23 38.8 115 20 119/71 94 Nasal Cannula 2.00 I & O 03/24/20 06:59 Intake Total 1250 ml Balance 1250 ml Height & Weight Height: 5'5.00" Weight: 165lbs. 0.0oz. 74.537082gv; 38.33 BMI Method:Stated Capillary Refill: Less Than 3 Seconds Results Lab Laboratory Tests 03/23/20 16:55 03/24/20 05:37 Assessment/Plan Assessment/Plan COVID PNA -Currently requiring Vapotherm 60% -Decadron -Remdesivir -CVP -Doubt bacterial PNA at this time -- No leukocytosis, normal PCT -Normal DDIMer Move pt to cardiac step down for close monitoring TORIN MARQUEZ DO Mar 24, 2020 10:12
[2020-03-24] MEDS ORDERED: LORazepam INJ 2 MG/ML (ATIVAN) VIAL IVP ONE (10:15)
[2020-03-24] MEDS ORDERED: KCL 20 MEQ TAB (K-DUR) PO NR (10:15)
[2020-03-24 10:22] LABS: ABG BASE EXCESS -1.3 MMOL/L (-2.5-2.5); ABG OXYGEN SATURATION 97 % (94-100); ABG PCO2 38 MMHG (35-45); ABG PO2 89 MMHG (79-93); ABG TCO2 23.9 MMOL/L (21.0-31.0)
[2020-03-24 10:25] LABS: ALLENS TEST YES-POS; INSPIRED O2 70%; PATIENT TEMP 37.6; VENTILATOR NO
--- NOTE | 2020-03-24 13:17 | History & Physical-Hospitalist ---
History of Present Illness HPI/Chief Complaint Comfort Pruitt is a 39-year-old female who presented with shortness of breath. She was recently diagnosed with COVID-19. She isn't having symptoms for about a week. 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 She is having some chest tightness. She had some diarrhea which is resolved. She has had some issues with her sense of smell. She denies any abdominal pain, nausea, or vomiting. She denies any leg swelling or pain. She had been taking Decadron, azithromycin, and some other supplements as an outpatient. Source: patient Exam Limitations: no limitations Date Seen 03/24/20 Time Seen by a Provider: 11:40 Attending Physician Misa Moore MD PCP Radha Garcia Aprn Referring Physician Date of Admission Mar 23, 2020 at 15:48 Home Medications & Allergies Home Medications Reviewed patient Home Medication Reconciliation performed by pharmacy medication reconciliations field technician and/or nursing. Patients Allergies have been reviewed. Allergies Allergies Coded Allergies cephalexin (Verified Allergy, Intermediate, HIVES, 10/30/16) Past Ixrfvmn-Ibzeqf-Mxybib Hx Past Med/Social Hx: Reviewed Nursing Past Med/Soc Hx Patient Social History Alcohol Use: Occasionally Uses Alcohol Beverage of Choice: Beer, Wine Recreational Drug Use: No Physical Abuse Screen: No Sexual Abuse: No Recent Foreign Travel: No Contact w/other who traveled: No Recent Hopitalizations: No Recent Infectious Disease Expo: Yes Immunizations Up To Date Pediatric: No Date of Influenza Vaccine: Nov 23, 2019 Seasonal Allergies Seasonal Allergies: Yes Past Medical History Surgeries: Section, Gallbladder Cardiac: Hypertension Neurological: Headaches /Migraines Sexually Transmitted Disease: No HIV/AIDS: No Female Reproductive Disorders: Denies Genitourinary: Kidney Stones Gastrointestinal: Chronic Diarrhea Loss of Vision: Bilateral Hearing Impairment: Denies Psychosocial: Anxiety, PTSD, Depression History of Blood Disorders: No Adverse Reaction to Blood Morris: No Review of Systems Constitutional: fever, malaise EENTM: no symptoms reported Respiratory: cough, short of breath Cardiovascular: no symptoms reported Gastrointestinal: diarrhea Genitourinary: no symptoms reported Musculoskeletal: no symptoms reported Skin: no symptoms reported Psychiatric/Neurological: No Symptoms Reported Physical Exam Physical Exam Vital Signs Vital Signs - First Documented 03/23/20 03/23/20 16:23 19:21 Temp 38.8 Pulse 115 Resp 20 B/P (MAP) 119/71 Pulse Ox 94 O2 Delivery Nasal Cannula O2 Flow Rate 2.00 FiO2 28 Capillary Refill : Less Than 3 Seconds Height, Weight, BMI Height: 5'5.00" Weight: 165lbs. 0.0oz. 74.572497bc; 38.33 BMI Method:Stated General Appearance: No Apparent Distress, Anxious, Obese HEENT: PERRL/EOMI, Pharynx Normal Neck: Normal Inspection, Supple Respiratory: Lungs Clear, Normal Breath Sounds, No Respiratory Distress Cardiovascular: Regular Rate, Rhythm, No Edema, No Murmur Gastrointestinal: Normal Bowel Sounds, Non Tender, Soft Extremity: Normal Inspection, Non Tender, No Pedal Edema Neurologic/Psychiatric: Alert, Oriented x3, No Motor/Sensory Deficits, Normal Mood/Affect Skin: Normal Color, Warm/Dry Results Results/Procedures Labs Laboratory Tests 03/23/20 16:55 03/24/20 05:37 Patient resulted labs reviewed. Imaging: Reviewed Imaging Report Assessment/Plan Admission Diagnosis Acute respiratory failure due to COVID-19 Admission Status: Inpatient Order (span 2 midnights) Reason for Inpatient Admission: Respiratory failure requiring supplemental oxygen COVID requiring IV medications Assessment and Plan Acute respiratory failure due to COVID-19 COVID positive at outside facility Chest xray with bilateral infiltrates D-dimer negative, repeat slightly increased Procalcitonin normal x2 ABG unremarkable BNP normal Started on Decadron Started on Remdesivir Awaiting convalescent plasma, agrees to EUA use Antibiotics not indicated Prophylactic Lovenox Requiring 2 L on admission, now needing Vapotherm Consult pulmonology, appreciate assistance Anxiety Ativan as needed Hypokalemia Monitor and replace as needed Obesity Clinically significant, no acute management needs DVT Prophylaxis: Lovenox Diagnosis/Problems Diagnosis/Problems (1) Acute respiratory failure due to COVID-19 Status: Acute (2) Anxiety Status: Acute (3) Hypokalemia Status: Acute (4) Obesity Status: Chronic Clinical Quality Measures DVT/VTE Risk/Contraindication: Risk Factor Score Per Nursin RFS Level Per Nursing on Admit: 3=High POLO HANCOCK MD Mar 24, 2020 13:17
[2020-03-24] MEDS ORDERED: NS IV 500 ML 500 ML ONE (13:53)
[2020-03-24] MEDS: ENOXAPARIN 40 MG/0.4 ML (LOVENOX) SYR SC SCH (15:37)
[2020-03-24] MEDS: REMDESIVIR INJ 100 MG in NS (IVPB) 230 ML IV SCH (15:37)
[2020-03-24] MEDS: MELATONIN 3 MG TABLET PO SCH (20:03)
[2020-03-25] MEDS: RT-ALBUTEROL INHALER HFA (VENTOLIN HFA) 18 GM IH SCH ×6 (01:04→21:32)
[2020-03-25] MEDS: guaiFENesin SYRUP 100 MG/5 ML 10 ML (ROBITUSSIN SF) PO PRN ×3 (01:12→18:03)
[2020-03-25] MEDS: KETOROLAC 30 MG/ML VIAL IVP PRN ×3 (01:45→20:40)
[2020-03-25 03:45] VITALS: BP 124/82
[2020-03-25] MEDS: ALPRAZolam 0.5 MG (XANAX) TAB PO PRN ×2 (03:47→20:40)
[2020-03-25] MEDS: ACETAMINOPHEN 500 MG TAB (TYLENOL) PO PRN (03:52)
[2020-03-25 03:54] LABS: BASOPHILS % (AUTO) 0 % (0-10); EOSINOPHILS % (AUTO) 0 % (0-10); HEMATOCRIT 34 % (35-52); HEMOGLOBIN 11.6 g/dL (11.5-16.0); LYMPHOCYTES % (AUTO) 13 % (12-44); MEAN CORPUSCULAR HEMOGLOBIN 29 pg (25-34); MEAN CORPUSCULAR HGB CONC 34 g/dL (32-36); MEAN CORPUSCULAR VOLUME 86 fL (80-99); MEAN PLATELET VOLUME 9.3 fL (9.0-12.2); MONOCYTES # (AUTO) 0.2 10^3/uL (0.0-1.0); MONOCYTES % (AUTO) 3 % (0-12); NEUTROPHILS # (AUTO) 6.8 10^3/uL (1.8-7.8); NEUTROPHILS % (AUTO) 84 % (42-75); PLATELET COUNT 207 10^3/uL (130-400); WHITE BLOOD COUNT 8.1 10^3/uL (4.3-11.0)
[2020-03-25 04:06] LABS: CHLORIDE 104 MMOL/L (98-107); POTASSIUM 3.6 MMOL/L (3.6-5.0); SODIUM 135 MMOL/L (135-145)
[2020-03-25 04:07] LABS: CALCIUM 7.9 MG/DL (8.5-10.1)
[2020-03-25 04:08] LABS: GLUCOSE 95 MG/DL (70-105); TOTAL PROTEIN 5.7 GM/DL (6.4-8.2)
[2020-03-25 04:09] LABS: CARBON DIOXIDE 21 MMOL/L (21-32)
[2020-03-25 04:10] LABS: BILIRUBIN,TOTAL 0.3 MG/DL (0.1-1.0)
[2020-03-25 04:11] LABS: PHOSPHORUS 2.4 MG/DL (2.3-4.7)
[2020-03-25 04:12] LABS: ALKALINE PHOSPHATASE 48 U/L (40-136); GFR ESTIMATED > 60
[2020-03-25 04:13] LABS: BUN/CREATININE RATIO 27
[2020-03-25 04:15] LABS: ALANINE AMINOTRANSFERASE 24 U/L (0-55); MAGNESIUM 1.8 MG/DL (1.6-2.4)
--- NOTE | 2020-03-25 05:19 | Pulmonary Progress Note ---
Subjective Time Seen by a Provider: 05:18 Subjective/Events-last exam PT is on 70% Vapotherm. Sepsis Event Evaluation Height, Weight, BMI Height: 5'5.00" Weight: 165lbs. 0.0oz. 74.094420yy; 38.33 BMI Method:Stated Focused Exam Lactate Level 03/23/20 18:40: Lactic Acid Level 1.08 Exam Exam Vital Signs Date Time Temp Pulse Resp B/P (MAP) Pulse Ox O2 Delivery O2 Flow Rate FiO2 03/25/20 03:52 38.1 03/25/20 03:48 38.1 03/25/20 03:45 95 22 124/82 (96) 94 Vapotherm 30.00 80.00 03/25/20 01:04 90 Vapotherm 30.00 70 03/25/20 00:41 78 03/24/20 23:47 36.6 90 20 109/79 (89) 100 Vapotherm 30.00 80.00 03/24/20 22:00 90 Vapotherm 30.00 55 03/24/20 21:00 94 Vapotherm 35.00 80 03/24/20 20:00 37.2 03/24/20 19:29 36.2 99 22 105/79 (88) 93 Vapotherm 30.00 80.00 03/24/20 19:26 90 Vapotherm 30.00 55 03/24/20 19:00 85 03/24/20 15:45 36.6 92 25 93/75 (81) 92 Vapotherm 30.00 55.00 03/24/20 15:36 36.4 88 22 122/77 92 Vapotherm 55 03/24/20 14:41 36.7 86 26 121/79 94 Vapotherm 55 03/24/20 14:26 36.4 93 21 121/73 90 Vapotherm 55 03/24/20 14:24 36.7 03/24/20 14:21 36.7 88 24 123/68 93 Vapotherm 30.00 55 03/24/20 14:01 92 Vapotherm 30.00 55 03/24/20 13:10 91 03/24/20 12:00 37.0 93 24 107/73 (84) 93 Vapotherm 30.00 55.00 03/24/20 11:20 37.6 03/24/20 10:50 94 Vapotherm 30.00 60 03/24/20 08:39 37.5 03/24/20 08:00 Nasal Cannula 03/24/20 07:50 38.2 109 22 115/79 (91) 94 Vapotherm 40.00 70.00 03/24/20 06:43 91 Vapotherm 40.00 70 I & O 03/25/20 07:00 Intake Total 2125 ml Output Total 500 ml Balance 1625 ml Height & Weight Height: 5'5.00" Weight: 165lbs. 0.0oz. 74.335006bt; 38.33 BMI Method:Stated General Appearance: No Apparent Distress, Anxious, Obese HEENT: PERRL/EOMI, Pharynx Normal Neck: Normal Inspection, Supple Respiratory: Lungs Clear, Normal Breath Sounds, No Respiratory Distress Cardiovascular: Regular Rate, Rhythm, No Edema, No Murmur Capillary Refill: Less Than 3 Seconds Extremity: Normal Inspection, Non Tender, No Pedal Edema Neurologic/Psychiatric: Alert, Oriented x3, No Motor/Sensory Deficits, Normal Mood/Affect Skin: Normal Color, Warm/Dry Results Lab Laboratory Tests 03/23/20 16:55 03/24/20 05:37 03/25/20 03:40 Assessment/Plan Assessment/Plan COVID PNA -Currently requiring Vapotherm 70% -Decadron -Remdesivir -Proning -CVP -Doubt bacterial PNA at this time -- No leukocytosis, normal PCT -Normal TORIN Jacobs DO Mar 25, 2020 05:19
[2020-03-25] MEDS ORDERED: POTASSIUM CL 10MEQ/50ML IVPB 50 ML IV SCH (06:00)
[2020-03-25] MEDS ORDERED: KCL 20 MEQ TAB (K-DUR) PO SCH (06:00)
[2020-03-25] MEDS ORDERED: MAGNESIUM 1 GM/100 ML IVPB 100 ML IV SCH (06:00)
[2020-03-25] MEDS ORDERED: KCL 20 MEQ TAB (K-DUR) PO ONE (06:00)
[2020-03-25 07:52] VITALS: BP 116/81
[2020-03-25] MEDS: FLUoxetine HCL 20 MG (PROzac) CAP PO SCH (08:31)
--- NOTE | 2020-03-25 10:56 | NUR ---
CM/SS: Attempted to visit with pt as to her current status and plan for discharge. Pt was resting and was on Vapotherm. This worker talked with MARISOL Rene, requesting that she let pt know if she needs anything that this worker is assigned to her, and will follow up at a later time. This worker will follow up.
[2020-03-25 11:07] VITALS: BP 107/66
--- NOTE | 2020-03-25 12:50 | Progress Note - Hospitalist ---
Subjective HPI/CC On Admission Date Seen by Provider: Mar 25, 2020 Time Seen by Provider: 09:00 Comfort Pruitt is a 39-year-old female who presented with shortness of breath. She was recently diagnosed with COVID-19. She isn't having symptoms for about a week. 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 She is having some chest tightness. She had some diarrhea which is resolved. She has had some issues with her sense of smell. She denies any abdominal pain, nausea, or vomiting. She denies any leg swelling or pain. She had been taking Decadron, azithromycin, and some other supplements as an outpatient. Subjective/Events-last exam She he is feeling a bit better today. Her shortness of breath is improved. She has not had any fevers yet today. She has been able to eat and drink a bit. Focused Exam Lactate Level 03/23/20 18:40: Lactic Acid Level 1.08 Objective Exam Vital Signs Vital Signs Date Time Temp Pulse Resp B/P (MAP) Pulse Ox O2 Delivery O2 Flow Rate FiO2 03/25/20 11:07 36.8 88 22 107/66 (80) 97 Vapotherm 30.00 85.00 03/25/20 10:37 85 Capillary Refill : Less Than 3 Seconds General Appearance: No Apparent Distress, Obese Respiratory: No Respiratory Distress, Wheezing Cardiovascular: No Edema, No Murmur, Tachycardia Gastrointestinal: Normal Bowel Sounds, Non Tender, Soft Extremity: Normal Inspection, Non Tender, No Pedal Edema Neurologic/Psychiatric: Alert, Oriented x3, No Motor/Sensory Deficits, Normal Mood/Affect Skin: Normal Color, Warm/Dry Results/Procedures Lab Laboratory Tests 03/25/20 03:40 Patient resulted labs reviewed. Imaging: Reviewed Imaging Report Assessment/Plan Assessment and Plan Assess & Plan/Chief Complaint Acute respiratory failure due to COVID-19 Decadron Remdesivir s/p convalescent plasma x1 Antibiotics not indicated Prophylactic Lovenox Continue Vapotherm Proning as tolerated Anxiety Ativan as needed Obesity Clinically significant, no acute management needs DVT Prophylaxis: Lovenox Hypokalemia, resolved Diagnosis/Problems Diagnosis/Problems (1) Acute respiratory failure due to COVID-19 Status: Acute (2) Anxiety Status: Acute (3) Hypokalemia Status: Resolved Resolution Date/Time: 03/25/20 @ 12:50 (4) Obesity Status: Chronic Clinical Quality Measures DVT/VTE Risk/Contraindication: Risk Factor Score Per Nursin RFS Level Per Nursing on Admit: 3=High POLO HANCOCK MD Mar 25, 2020 12:50
[2020-03-25 15:18] VITALS: BP 116/79
[2020-03-25] MEDS ORDERED: IBUP-1780 PO (15:35)
[2020-03-25] MEDS ORDERED: AZIT250T12 PO (15:35)
[2020-03-25] MEDS ORDERED: DEXA6TAB PO (15:35)
[2020-03-25] MEDS ORDERED: HYDR12.56 PO (15:35)
[2020-03-25] MEDS ORDERED: DEXT30TA12 PO (15:36)
[2020-03-25] MEDS ORDERED: BUTA1CAP41 PO (15:36)
[2020-03-25] MEDS ORDERED: ALPR0.5T7 PO (15:36)
[2020-03-25] MEDS ORDERED: CHOL500049 PO (15:36)
[2020-03-25] MEDS ORDERED: ALBU18HF2 INH (15:36)
[2020-03-25] MEDS ORDERED: FLUO40CA PO (15:36)
[2020-03-25] MEDS ORDERED: LISI10TA2 PO (15:36)
--- NOTE | 2020-03-25 15:43 | NUR ---
CALLED PT BUT DUE TO PT BEING ON VAPOTHERM SHE WAS NOT ABLE TO GO OVER HER MEDICATIONS. I TOLD HER I COULD MAKE A LIST OF WHAT I CAN SEE HER PHARMACY HAS FILLED AND I WOULD BRING IT UP TO HER. I TYPED A LIST USING THE EXT MED HISTORY AND PABLITO WENT OVER THE MEDICATIONS WITH THE PT AND WAS ABLE TO TELL ME HOW/WHEN SHE TAKES EACH. BACLOFEN AND MONTELUKAST WERE FIRST FILLED ON 03-10-2020 HOWEVER PT HAS NOT STARTED TAKING EITHER OF THESE MEDS ACCORDING TO THE PT THE FOLLOWING MEDS ARE PRN ONLY: IBUPROFEN 800MG, XANAX 0.5MG, BUTALBITAL AND ADDERALL
[2020-03-25] MEDS: ENOXAPARIN 40 MG/0.4 ML (LOVENOX) SYR SC SCH (16:59)
[2020-03-25] MEDS: REMDESIVIR INJ 100 MG in NS (IVPB) 230 ML IV SCH (16:59)
--- NOTE | 2020-03-25 17:32 | NUR ---
Updated pt friend Minal on pt condition at this time.
[2020-03-25 19:11] VITALS: BP 130/86
[2020-03-25] MEDS: MELATONIN 3 MG TABLET PO SCH (20:40)
[2020-03-26 01:00] VITALS: BP 133/83
[2020-03-26] MEDS: guaiFENesin SYRUP 100 MG/5 ML 10 ML (ROBITUSSIN SF) PO PRN ×5 (01:03→22:14)
[2020-03-26 04:00] VITALS: BP 122/82
[2020-03-26 04:00] LABS: BASOPHILS % (AUTO) 0 % (0-10); EOSINOPHILS % (AUTO) 0 % (0-10); HEMATOCRIT 36 % (35-52); HEMOGLOBIN 12.1 g/dL (11.5-16.0); LYMPHOCYTES # (AUTO) 1.1 10^3/uL (1.0-4.0); LYMPHOCYTES % (AUTO) 13 % (12-44); MEAN CORPUSCULAR HEMOGLOBIN 29 pg (25-34); MEAN CORPUSCULAR HGB CONC 34 g/dL (32-36); MEAN CORPUSCULAR VOLUME 87 fL (80-99); MEAN PLATELET VOLUME 9.2 fL (9.0-12.2); MONOCYTES # (AUTO) 0.3 10^3/uL (0.0-1.0); MONOCYTES % (AUTO) 4 % (0-12); NEUTROPHILS # (AUTO) 6.4 10^3/uL (1.8-7.8); NEUTROPHILS % (AUTO) 81 % (42-75); PLATELET COUNT 226 10^3/uL (130-400); WHITE BLOOD COUNT 7.9 10^3/uL (4.3-11.0)
[2020-03-26 04:13] LABS: CHLORIDE 102 MMOL/L (98-107); SODIUM 134 MMOL/L (135-145)
[2020-03-26 04:14] LABS: CALCIUM 8.2 MG/DL (8.5-10.1)
[2020-03-26 04:15] LABS: GLUCOSE 102 MG/DL (70-105); TOTAL PROTEIN 5.9 GM/DL (6.4-8.2)
[2020-03-26 04:16] LABS: CARBON DIOXIDE 21 MMOL/L (21-32)
[2020-03-26 04:17] LABS: BILIRUBIN,TOTAL 0.3 MG/DL (0.1-1.0)
[2020-03-26 04:18] LABS: ALKALINE PHOSPHATASE 57 U/L (40-136)
[2020-03-26 04:19] LABS: CREATININE SERUM 0.62 MG/DL (0.60-1.30); GFR ESTIMATED > 60
[2020-03-26 04:20] LABS: BUN/CREATININE RATIO 27
[2020-03-26 04:21] LABS: ALANINE AMINOTRANSFERASE 21 U/L (0-55)
[2020-03-26] MEDS: ALPRAZolam 0.5 MG (XANAX) TAB PO PRN ×3 (05:09→22:14)
[2020-03-26] MEDS: RT-ALBUTEROL INHALER HFA (VENTOLIN HFA) 18 GM IH SCH ×6 (05:18→22:30)
[2020-03-26] MEDS: FLUoxetine HCL 20 MG (PROzac) CAP PO SCH (08:31)
--- NOTE | 2020-03-26 11:04 | Progress Note - Hospitalist ---
Subjective HPI/CC On Admission Date Seen by Provider: Mar 26, 2020 Time Seen by Provider: 09:05 Comfort Pruitt is a 39-year-old female who presented with shortness of breath. She was recently diagnosed with COVID-19. She isn't having symptoms for about a week. 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 She is having some chest tightness. She had some diarrhea which is resolved. She has had some issues with her sense of smell. She denies any abdominal pain, nausea, or vomiting. She denies any leg swelling or pain. She had been taking Decadron, azithromycin, and some other supplements as an outpatient. Subjective/Events-last exam She is feeling a bit better today. She denies having any fevers. She thinks her shortness of breath is getting better. She saw the bit of a cough. She has been getting her appetite back. She denies any nausea or vomiting. She is not having any diarrhea. Focused Exam Lactate Level 03/23/20 18:40: Lactic Acid Level 1.08 Objective Exam Vital Signs Vital Signs Date Time Temp Pulse Resp B/P (MAP) Pulse Ox O2 Delivery O2 Flow Rate FiO2 03/26/20 09:30 90 Vapotherm 25.00 45 03/26/20 08:00 37.7 03/26/20 07:00 88 03/26/20 04:00 18 122/82 (95) Capillary Refill : Less Than 3 Seconds General Appearance: No Apparent Distress, Obese Respiratory: Lungs Clear, Normal Breath Sounds, No Respiratory Distress Cardiovascular: Regular Rate, Rhythm, No Edema, No Murmur Gastrointestinal: Normal Bowel Sounds, Non Tender, Soft Extremity: Normal Inspection, Non Tender, No Pedal Edema Neurologic/Psychiatric: Alert, Oriented x3, No Motor/Sensory Deficits, Normal Mood/Affect Skin: Normal Color, Warm/Dry Results/Procedures Lab Laboratory Tests 03/26/20 03:35 Patient resulted labs reviewed. Imaging: Reviewed Imaging Report Assessment/Plan Assessment and Plan Assess & Plan/Chief Complaint Acute respiratory failure due to COVID-19 Decadron Remdesivir s/p convalescent plasma x1 Antibiotics not indicated Prophylactic Lovenox Continue Vapotherm, requirements improving Proning as tolerated Back pain Oxycodone as needed while proning Anxiety Ativan as needed Obesity Clinically significant, no acute management needs DVT Prophylaxis: Lovenox Hypokalemia, resolved Diagnosis/Problems Diagnosis/Problems (1) Acute respiratory failure due to COVID-19 Status: Acute (2) Anxiety Status: Acute (3) Hypokalemia Status: Resolved Resolution Date/Time: 03/25/20 @ 12:50 (4) Obesity Status: Chronic Clinical Quality Measures DVT/VTE Risk/Contraindication: Risk Factor Score Per Nursin RFS Level Per Nursing on Admit: 3=High POLO HANCOCK MD Mar 26, 2020 11:04
[2020-03-26 12:00] VITALS: BP 115/66
[2020-03-26] MEDS ORDERED: PANTOPRAZOLE 40 MG (PROTONIX) TAB PO ONE (12:01)
[2020-03-26] MEDS: PANTOPRAZOLE 40 MG (PROTONIX) TAB PO SCH (12:29)
[2020-03-26 15:44] VITALS: BP 125/78
[2020-03-26] MEDS: REMDESIVIR INJ 100 MG in NS (IVPB) 230 ML IV SCH (17:34)
[2020-03-26] MEDS: ENOXAPARIN 40 MG/0.4 ML (LOVENOX) SYR SC SCH (17:34)
[2020-03-26 20:00] VITALS: BP 139/94
[2020-03-26] MEDS: DOCUSATE SODIUM 100 MG (COLACE) CAP PO SCH (22:13)
[2020-03-26] MEDS: MELATONIN 3 MG TABLET PO SCH (22:13)
[2020-03-27 00:59] VITALS: BP 118/85
[2020-03-27] MEDS: RT-ALBUTEROL INHALER HFA (VENTOLIN HFA) 18 GM IH SCH ×5 (02:34→23:12)
[2020-03-27 03:31] LABS: BASOPHILS % (AUTO) 0 % (0-10); EOSINOPHILS # (AUTO) 0.1 10^3/uL (0.0-0.3); EOSINOPHILS % (AUTO) 1 % (0-10); HEMATOCRIT 36 % (35-52); HEMOGLOBIN 11.9 g/dL (11.5-16.0); LYMPHOCYTES # (AUTO) 0.9 10^3/uL (1.0-4.0); LYMPHOCYTES % (AUTO) 13 % (12-44); MEAN CORPUSCULAR HEMOGLOBIN 29 pg (25-34); MEAN CORPUSCULAR HGB CONC 33 g/dL (32-36); MEAN CORPUSCULAR VOLUME 86 fL (80-99); MEAN PLATELET VOLUME 9.3 fL (9.0-12.2); MONOCYTES # (AUTO) 0.4 10^3/uL (0.0-1.0); MONOCYTES % (AUTO) 5 % (0-12); NEUTROPHILS # (AUTO) 4.9 10^3/uL (1.8-7.8); NEUTROPHILS % (AUTO) 75 % (42-75); PLATELET COUNT 243 10^3/uL (130-400); WHITE BLOOD COUNT 6.5 10^3/uL (4.3-11.0)
[2020-03-27 03:42] LABS: CHLORIDE 104 MMOL/L (98-107); POTASSIUM 3.7 MMOL/L (3.6-5.0); SODIUM 138 MMOL/L (135-145)
[2020-03-27 03:43] LABS: CALCIUM 8.1 MG/DL (8.5-10.1)
[2020-03-27 03:44] LABS: GLUCOSE 106 MG/DL (70-105); TOTAL PROTEIN 5.8 GM/DL (6.4-8.2)
[2020-03-27 03:45] LABS: CARBON DIOXIDE 22 MMOL/L (21-32)
[2020-03-27 03:46] LABS: BILIRUBIN,TOTAL 0.2 MG/DL (0.1-1.0)
[2020-03-27 03:48] LABS: ALKALINE PHOSPHATASE 53 U/L (40-136); CREATININE SERUM 0.64 MG/DL (0.60-1.30); GFR ESTIMATED > 60
[2020-03-27 03:49] LABS: BUN/CREATININE RATIO 20
[2020-03-27 03:51] LABS: ALANINE AMINOTRANSFERASE 22 U/L (0-55)
[2020-03-27 04:30] VITALS: BP 126/82
[2020-03-27] MEDS: guaiFENesin SYRUP 100 MG/5 ML 10 ML (ROBITUSSIN SF) PO PRN ×3 (05:39→19:52)
[2020-03-27 08:09] VITALS: BP 129/89
[2020-03-27] MEDS: PANTOPRAZOLE 40 MG (PROTONIX) TAB PO SCH (08:14)
[2020-03-27] MEDS: FLUoxetine HCL 20 MG (PROzac) CAP PO SCH (08:14)
[2020-03-27] MEDS: DOCUSATE SODIUM 100 MG (COLACE) CAP PO SCH ×2 (08:14→19:53)
[2020-03-27 12:14] VITALS: BP 121/78
--- NOTE | 2020-03-27 13:17 | Progress Note - Hospitalist ---
Subjective HPI/CC On Admission Date Seen by Provider: Mar 27, 2020 Time Seen by Provider: 10:30 Comfort Pruitt is a 39-year-old female who presented with shortness of breath. She was recently diagnosed with COVID-19. She isn't having symptoms for about a week. 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 She is having some chest tightness. She had some diarrhea which is resolved. She has had some issues with her sense of smell. She denies any abdominal pain, nausea, or vomiting. She denies any leg swelling or pain. She had been taking Decadron, azithromycin, and some other supplements as an outpatient. Subjective/Events-last exam She is feeling about the same. She is proning. She has been eating and drinking without issue. She is not having fevers. Objective Exam Vital Signs Vital Signs Date Time Temp Pulse Resp B/P (MAP) Pulse Ox O2 Delivery O2 Flow Rate FiO2 03/27/20 13:00 98 03/27/20 12:14 36.8 12 121/78 (92) Vapotherm 20.00 50.00 03/27/20 11:01 92 50 Capillary Refill : Less Than 3 Seconds General Appearance: No Apparent Distress, Obese Respiratory: Lungs Clear, Normal Breath Sounds, No Respiratory Distress Cardiovascular: Regular Rate, Rhythm, No Edema, No Murmur Gastrointestinal: Normal Bowel Sounds, Non Tender, Soft Extremity: Normal Inspection, Non Tender, No Pedal Edema Neurologic/Psychiatric: Alert, Oriented x3, No Motor/Sensory Deficits, Normal Mood/Affect Skin: Normal Color, Warm/Dry Results/Procedures Lab Laboratory Tests 03/27/20 03:20 Patient resulted labs reviewed. Imaging: Reviewed Imaging Report Assessment/Plan Assessment and Plan Assess & Plan/Chief Complaint Acute respiratory failure due to COVID-19 Decadron Remdesivir s/p convalescent plasma x1 Antibiotics not indicated Prophylactic Lovenox Continue Vapotherm, weaning as able Proning as tolerated Back pain Oxycodone as needed while proning Anxiety Ativan as needed Obesity Clinically significant, no acute management needs DVT Prophylaxis: Lovenox Hypokalemia, resolved Diagnosis/Problems Diagnosis/Problems (1) Acute respiratory failure due to COVID-19 Status: Acute (2) Anxiety Status: Acute (3) Hypokalemia Status: Resolved Resolution Date/Time: 03/25/20 @ 12:50 (4) Obesity Status: Chronic Clinical Quality Measures DVT/VTE Risk/Contraindication: Risk Factor Score Per Nursin RFS Level Per Nursing on Admit: 3=High POLO HANCOCK MD Mar 27, 2020 13:17
[2020-03-27 16:26] VITALS: BP 125/79
[2020-03-27] MEDS: ENOXAPARIN 40 MG/0.4 ML (LOVENOX) SYR SC SCH (16:29)
[2020-03-27] MEDS: REMDESIVIR INJ 100 MG in NS (IVPB) 230 ML IV SCH (16:29)
[2020-03-27 19:31] VITALS: BP 132/79
[2020-03-27] MEDS: ALPRAZolam 0.5 MG (XANAX) TAB PO PRN (19:54)
[2020-03-27] MEDS: MELATONIN 3 MG TABLET PO SCH (19:54)
[2020-03-28] VITALS (7 sets, daily range): BP systolic 95–135; BP diastolic 70–91
[2020-03-28] MEDS: guaiFENesin SYRUP 100 MG/5 ML 10 ML (ROBITUSSIN SF) PO PRN (00:31)
[2020-03-28] MEDS: RT-ALBUTEROL INHALER HFA (VENTOLIN HFA) 18 GM IH SCH ×6 (02:41→21:56)
[2020-03-28 03:59] LABS: BASOPHILS % (AUTO) 1 % (0-10); EOSINOPHILS # (AUTO) 0.1 10^3/uL (0.0-0.3); EOSINOPHILS % (AUTO) 2 % (0-10); HEMATOCRIT 35 % (35-52); HEMOGLOBIN 11.9 g/dL (11.5-16.0); LYMPHOCYTES # (AUTO) 1.3 10^3/uL (1.0-4.0); LYMPHOCYTES % (AUTO) 15 % (12-44); MEAN CORPUSCULAR HEMOGLOBIN 29 pg (25-34); MEAN CORPUSCULAR HGB CONC 34 g/dL (32-36); MEAN CORPUSCULAR VOLUME 86 fL (80-99); MONOCYTES # (AUTO) 0.5 10^3/uL (0.0-1.0); MONOCYTES % (AUTO) 5 % (0-12); NEUTROPHILS # (AUTO) 6.2 10^3/uL (1.8-7.8); NEUTROPHILS % (AUTO) 71 % (42-75); PLATELET COUNT 247 10^3/uL (130-400); WHITE BLOOD COUNT 8.7 10^3/uL (4.3-11.0)
[2020-03-28 04:13] LABS: CHLORIDE 105 MMOL/L (98-107); POTASSIUM 4.2 MMOL/L (3.6-5.0); SODIUM 139 MMOL/L (135-145)
[2020-03-28 04:14] LABS: CALCIUM 8.3 MG/DL (8.5-10.1)
[2020-03-28 04:15] LABS: GLUCOSE 93 MG/DL (70-105); TOTAL PROTEIN 5.7 GM/DL (6.4-8.2)
[2020-03-28 04:16] LABS: CARBON DIOXIDE 23 MMOL/L (21-32)
[2020-03-28 04:17] LABS: BILIRUBIN,TOTAL 0.3 MG/DL (0.1-1.0)
[2020-03-28 04:18] LABS: ALKALINE PHOSPHATASE 73 U/L (40-136)
[2020-03-28 04:19] LABS: CREATININE SERUM 0.68 MG/DL (0.60-1.30); GFR ESTIMATED > 60
[2020-03-28 04:20] LABS: BUN/CREATININE RATIO 24
[2020-03-28 04:22] LABS: ALANINE AMINOTRANSFERASE 31 U/L (0-55)
--- NOTE | 2020-03-28 06:18 | Pulmonary Progress Note ---
Subjective Time Seen by a Provider: 06:15 Subjective/Events-last exam No complications noted. Sepsis Event Evaluation Height, Weight, BMI Height: 5'5.00" Weight: 165lbs. 0.0oz. 74.635662sx; 38.33 BMI Method:Stated Exam Exam Vital Signs Date Time Temp Pulse Resp B/P (MAP) Pulse Ox O2 Delivery O2 Flow Rate FiO2 03/28/20 03:26 94 Vapotherm 20.00 50 03/28/20 03:04 36.0 83 24 135/82 (99) 96 Vapotherm 20.00 50.00 03/28/20 00:24 36.4 80 24 134/80 (98) 94 Vapotherm 20.00 50.00 03/27/20 23:13 94 Vapotherm 20.00 50 03/27/20 20:00 95 Vapotherm 20.00 50 03/27/20 19:31 36.5 90 30 132/79 (96) 95 Vapotherm 20.00 50.00 03/27/20 18:18 84 03/27/20 17:14 36.0 03/27/20 16:26 89 30 125/79 (94) 94 Vapotherm 20.00 50.00 03/27/20 14:11 96 Vapotherm 20.00 50 03/27/20 13:00 98 03/27/20 12:14 36.8 101 12 121/78 (92) Vapotherm 20.00 50.00 03/27/20 11:01 92 Vapotherm 20.00 50 03/27/20 08:15 99 Vapotherm 20.00 50 03/27/20 08:09 36.5 89 12 129/89 (102) Vapotherm 20.00 50.00 03/27/20 07:00 91 03/27/20 06:57 91 Vapotherm 20.00 50 I & O 03/28/20 06:59 Intake Total 1620 ml Output Total 1500 ml Balance 120 ml Height & Weight Height: 5'5.00" Weight: 165lbs. 0.0oz. 74.722353bw; 38.33 BMI Method:Stated General Appearance: No Apparent Distress, Obese HEENT: PERRL/EOMI, Pharynx Normal Neck: Normal Inspection, Supple Respiratory: Lungs Clear, Normal Breath Sounds, No Respiratory Distress Cardiovascular: Regular Rate, Rhythm, No Edema, No Murmur Capillary Refill: Less Than 3 Seconds Extremity: Normal Inspection, Non Tender, No Pedal Edema Neurologic/Psychiatric: Alert, Oriented x3, No Motor/Sensory Deficits, Normal Mood/Affect Skin: Normal Color, Warm/Dry Results Lab Laboratory Tests 03/27/20 03:20 03/28/20 03:45 Assessment/Plan Assessment/Plan COVID PNA -Currently requiring Vapotherm 50% -Decadron -Remdesivir -Proning -CVP -Doubt bacterial PNA at this time -- No leukocytosis, normal PCT -Repeat DDIMer, PCT TORIN MARQUEZ DO Mar 28, 2020 06:18
[2020-03-28] MEDS: PANTOPRAZOLE 40 MG (PROTONIX) TAB PO SCH (08:29)
[2020-03-28] MEDS: FLUoxetine HCL 20 MG (PROzac) CAP PO SCH (08:29)
[2020-03-28] MEDS: DOCUSATE SODIUM 100 MG (COLACE) CAP PO SCH ×2 (08:29→21:37)
[2020-03-28] MEDS: guaiFENesin/CODEINE (ROBITUSSIN AC) 10ML UDC PO PRN ×3 (08:30→17:57)
[2020-03-28] MEDS: ENOXAPARIN 100 MG/1 ML (LOVENOX) SYR SC SCH ×2 (08:30→21:37)
--- NOTE | 2020-03-28 08:36 | Diagnostic Imaging Report ---
EXAMINATION: Portable erect AP chest at 7:57 AM. INDICATION: Hypoxia. FINDINGS: The heart size is within normal limits and stable when compared to 03/24/2020. The diffuse alveolar/interstitial pulmonary infiltrates seen previously are again evident. There does seem to be greater involvement of both upper lobes by pneumonia/atelectasis on this exam. The mediastinum is not widened. The osseous structures are intact. IMPRESSION: The appearance of the chest has worsened since the prior exam as there is greater involvement of both upper lobes by pneumonia/atelectasis. Dictated by: Dictated on workstation # [id number]
[2020-03-28] MEDS: ALPRAZolam 0.5 MG (XANAX) TAB PO PRN (17:57)
[2020-03-28] MEDS ORDERED: polyethylene glycoL POWDER 17 GM (MIRALAX) PACK PO PRN (18:30)
[2020-03-28] MEDS: MELATONIN 3 MG TABLET PO SCH (21:37)
[2020-03-29] MEDS: RT-ALBUTEROL INHALER HFA (VENTOLIN HFA) 18 GM IH SCH ×6 (03:27→22:00)
[2020-03-29] MEDS: guaiFENesin/CODEINE (ROBITUSSIN AC) 10ML UDC PO PRN ×2 (03:34→11:26)
[2020-03-29 03:47] LABS: BASOPHILS # (AUTO) 0.1 10^3/uL (0.0-0.1); BASOPHILS % (AUTO) 1 % (0-10); EOSINOPHILS # (AUTO) 0.2 10^3/uL (0.0-0.3); EOSINOPHILS % (AUTO) 3 % (0-10); HEMATOCRIT 35 % (35-52); HEMOGLOBIN 11.6 g/dL (11.5-16.0); LYMPHOCYTES # (AUTO) 1.6 10^3/uL (1.0-4.0); LYMPHOCYTES % (AUTO) 23 % (12-44); MEAN CORPUSCULAR HEMOGLOBIN 28 pg (25-34); MEAN CORPUSCULAR HGB CONC 33 g/dL (32-36); MEAN CORPUSCULAR VOLUME 86 fL (80-99); MEAN PLATELET VOLUME 8.9 fL (9.0-12.2); MONOCYTES # (AUTO) 0.5 10^3/uL (0.0-1.0); MONOCYTES % (AUTO) 7 % (0-12); NEUTROPHILS # (AUTO) 4.1 10^3/uL (1.8-7.8); NEUTROPHILS % (AUTO) 57 % (42-75); PLATELET COUNT 265 10^3/uL (130-400); WHITE BLOOD COUNT 7.2 10^3/uL (4.3-11.0)
[2020-03-29 03:59] LABS: CHLORIDE 104 MMOL/L (98-107); SODIUM 139 MMOL/L (135-145)
[2020-03-29 04:01] LABS: CALCIUM 8.4 MG/DL (8.5-10.1)
[2020-03-29 04:02] LABS: GLUCOSE 119 MG/DL (70-105); TOTAL PROTEIN 5.7 GM/DL (6.4-8.2)
[2020-03-29 04:03] LABS: CARBON DIOXIDE 23 MMOL/L (21-32)
[2020-03-29 04:04] LABS: BILIRUBIN,TOTAL 0.2 MG/DL (0.1-1.0)
[2020-03-29 04:05] LABS: ALKALINE PHOSPHATASE 146 U/L (40-136); PHOSPHORUS 4.7 MG/DL (2.3-4.7)
[2020-03-29 04:06] LABS: GFR ESTIMATED > 60
[2020-03-29 04:07] LABS: BUN/CREATININE RATIO 23
[2020-03-29 04:08] LABS: ALANINE AMINOTRANSFERASE 80 U/L (0-55); MAGNESIUM 2.3 MG/DL (1.6-2.4)
[2020-03-29 04:23] VITALS: BP 132/93
--- NOTE | 2020-03-29 05:29 | Pulmonary Progress Note ---
Subjective Time Seen by a Provider: 05:26 Subjective/Events-last exam No complications noted. Pt appears to be improving. Sepsis Event Evaluation Height, Weight, BMI Height: 5'5.00" Weight: 165lbs. 0.0oz. 74.790204ck; 38.33 BMI Method:Stated Exam Exam Vital Signs Date Time Temp Pulse Resp B/P (MAP) Pulse Ox O2 Delivery O2 Flow Rate FiO2 03/29/20 04:23 36.3 62 22 132/93 (106) 95 Vapotherm 20.00 40.00 03/28/20 23:23 36.7 66 23 107/75 (86) 96 Vapotherm 20.00 40.00 03/28/20 23:00 Vapotherm 20.00 40.00 03/28/20 21:56 93 Vapotherm 20.00 40 03/28/20 21:00 94 Vapotherm 20.00 40 03/28/20 20:00 Vapotherm 20.00 40.00 03/28/20 19:12 36.0 84 20 112/80 (91) 95 Vapotherm 20.00 40.00 03/28/20 19:00 72 03/28/20 18:28 96 Vapotherm 20.00 40 03/28/20 16:27 92 15.00 40 03/28/20 15:28 36.0 85 25 104/75 (85) 94 Vapotherm 15.00 45.00 03/28/20 15:00 15.00 40.00 03/28/20 14:49 96 Vapotherm 20.00 45 03/28/20 12:50 78 03/28/20 12:06 36.1 97 22 124/91 (102) 96 Vapotherm 20.00 45.00 03/28/20 11:36 96 Vapotherm 20.00 50 03/28/20 08:00 99 Vapotherm 20.00 50 03/28/20 07:55 91 Vapotherm 20.00 50 03/28/20 07:36 36.0 96 17 95/70 (78) 90 Vapotherm 20.00 50.00 I & O 03/29/20 07:00 Intake Total 3175 ml Output Total 1050 ml Balance 2125 ml Height & Weight Height: 5'5.00" Weight: 165lbs. 0.0oz. 74.370195no; 38.33 BMI Method:Stated General Appearance: No Apparent Distress, Obese HEENT: PERRL/EOMI, Pharynx Normal Neck: Normal Inspection, Supple Respiratory: Lungs Clear, Normal Breath Sounds, No Respiratory Distress Cardiovascular: Regular Rate, Rhythm, No Edema, No Murmur Capillary Refill: Less Than 3 Seconds Extremity: Normal Inspection, Non Tender, No Pedal Edema Neurologic/Psychiatric: Alert, Oriented x3, No Motor/Sensory Deficits, Normal Mood/Affect Skin: Normal Color, Warm/Dry Results Lab Laboratory Tests 03/28/20 03:45 03/29/20 03:33 Assessment/Plan Assessment/Plan COVID PNA -Currently requiring Vapotherm 40% - improving -Decadron -s/p Remdesivir -Proning -s/p CVP -Doubt bacterial PNA at this time -- No leukocytosis, normal PCT DDIMer increased to 13 -Lovenox theraputic dosing -will continue anticoagulation for at least 3mo for suspect DVT/PE GI/DVT ppx Transfer to 4th floor with tele TORIN MARQUEZ DO Mar 29, 2020 05:29
[2020-03-29 08:00] VITALS: BP 139/99
[2020-03-29] MEDS: PANTOPRAZOLE 40 MG (PROTONIX) TAB PO SCH (08:23)
[2020-03-29] MEDS: DOCUSATE SODIUM 100 MG (COLACE) CAP PO SCH ×2 (08:23→20:37)
[2020-03-29] MEDS: ENOXAPARIN 100 MG/1 ML (LOVENOX) SYR SC SCH ×2 (08:23→20:38)
[2020-03-29] MEDS: FLUoxetine HCL 20 MG (PROzac) CAP PO SCH (08:23)
--- NOTE | 2020-03-29 09:50 | NUR ---
Received report and transfer from cardiac step down [facility] RN at this time. Patient voices no complaints or needs at this time. Will continue to monitor.
[2020-03-29 10:00] VITALS: BP 140/85
[2020-03-29 12:00] VITALS: BP 128/69
--- NOTE | 2020-03-29 15:13 | NUR ---
CM/SS: Visited with pt (via cell phone [phone]) as to if she had any questions or concerns or was there anything this worker could help with. Plan: Pt is from home and will return there when deemed appropriate. Summary: Pt reports she is glad that this worker reached out to her. Pt would like information on short term disability and information if she is not able to return to work immediately. This worker is able to obtain the phone number for [facility] - telephone number . The runner for the unit was asked to give the pt the information. This worker will follow up.
[2020-03-29 15:46] VITALS: BP 100/56
[2020-03-29] MEDS: ALPRAZolam 0.5 MG (XANAX) TAB PO PRN (16:18)
[2020-03-29] MEDS: MELATONIN 3 MG TABLET PO SCH (20:37)
[2020-03-29] MEDS: guaiFENesin SYRUP 100 MG/5 ML 10 ML (ROBITUSSIN SF) PO PRN (20:37)
[2020-03-29] MEDS: ACETAMINOPHEN 500 MG TAB (TYLENOL) PO PRN (20:50)
[2020-03-29 23:24] VITALS: BP 136/78
[2020-03-30] MEDS: RT-ALBUTEROL INHALER HFA (VENTOLIN HFA) 18 GM IH SCH ×4 (01:33→23:45)
[2020-03-30] MEDS: guaiFENesin/CODEINE (ROBITUSSIN AC) 10ML UDC PO PRN ×4 (03:54→20:49)
[2020-03-30 06:21] LABS: BASOPHILS # (AUTO) 0.1 10^3/uL (0.0-0.1); BASOPHILS % (AUTO) 1 % (0-10); EOSINOPHILS # (AUTO) 0.2 10^3/uL (0.0-0.3); EOSINOPHILS % (AUTO) 2 % (0-10); HEMATOCRIT 35 % (35-52); HEMOGLOBIN 11.6 g/dL (11.5-16.0); LYMPHOCYTES # (AUTO) 1.9 10^3/uL (1.0-4.0); LYMPHOCYTES % (AUTO) 24 % (12-44); MEAN CORPUSCULAR HEMOGLOBIN 29 pg (25-34); MEAN CORPUSCULAR HGB CONC 34 g/dL (32-36); MEAN CORPUSCULAR VOLUME 86 fL (80-99); MEAN PLATELET VOLUME 9.4 fL (9.0-12.2); MONOCYTES # (AUTO) 0.5 10^3/uL (0.0-1.0); MONOCYTES % (AUTO) 6 % (0-12); NEUTROPHILS # (AUTO) 4.5 10^3/uL (1.8-7.8); NEUTROPHILS % (AUTO) 56 % (42-75); PLATELET COUNT 290 10^3/uL (130-400)
[2020-03-30 08:14] VITALS: BP 146/82
[2020-03-30] MEDS: DOCUSATE SODIUM 100 MG (COLACE) CAP PO SCH ×2 (08:29→20:50)
[2020-03-30] MEDS: PANTOPRAZOLE 40 MG (PROTONIX) TAB PO SCH (08:29)
[2020-03-30] MEDS: FLUoxetine HCL 20 MG (PROzac) CAP PO SCH (08:30)
[2020-03-30] MEDS: ENOXAPARIN 100 MG/1 ML (LOVENOX) SYR SC SCH ×2 (08:30→20:50)
[2020-03-30] MEDS: ALPRAZolam 0.5 MG (XANAX) TAB PO PRN ×2 (08:31→17:41)
[2020-03-30] MEDS: ACETAMINOPHEN 500 MG TAB (TYLENOL) PO PRN (08:31)
[2020-03-30] MEDS ORDERED: diphenhydrAMINE 25 MG TAB (BENADRYL) PO PRN (09:45)
--- NOTE | 2020-03-30 10:02 | Progress Note - Hospitalist ---
Subjective HPI/CC On Admission Date Seen by Provider: Mar 30, 2020 Time Seen by Provider: 09:59 Comfort Pruitt is a 39-year-old female who presented with shortness of breath. She was recently diagnosed with COVID-19. She isn't having symptoms for about a week. 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 She is having some chest tightness. She had some diarrhea which is resolved. She has had some issues with her sense of smell. She denies any abdominal pain, nausea, or vomiting. She denies any leg swelling or pain. She had been taking Decadron, azithromycin, and some other supplements as an outpatient. Subjective/Events-last exam Pt reports feeling much better. No complaints. Breathing improving. Still dyspneic with exertion though. Objective Exam Vital Signs Vital Signs Date Time Temp Pulse Resp B/P (MAP) Pulse Ox O2 Delivery O2 Flow Rate FiO2 03/30/20 08:14 36.3 82 18 146/82 (103) 95 High Flow N/C 4.00 03/28/20 21:56 40 Capillary Refill : Less Than 3 Seconds General Appearance: No Apparent Distress, WD/WN Respiratory: Lungs Clear, No Respiratory Distress Cardiovascular: Regular Rate, Rhythm, No Murmur Neurologic/Psychiatric: Alert, Oriented x3 Results/Procedures Lab Laboratory Tests 03/30/20 05:23 Patient resulted labs reviewed. Imaging: Reviewed Imaging Report Assessment/Plan Assessment and Plan Assess & Plan/Chief Complaint COVID PNA -Downto 4lpm NC -Decadron -s/p Remdesivir -Proning as able -s/p CVP - Hopefully home in the next day or two if continues to improve DDIMer increased to 13 -Lovenox theraputic dosing -will continue anticoagulation for at least 3mo for suspect DVT/PE GI/DVT ppx Clinical Quality Measures DVT/VTE Risk/Contraindication: Risk Factor Score Per Nursin RFS Level Per Nursing on Admit: 3=High BRITNEY ALATORRE MD Mar 30, 2020 10:02
[2020-03-30] MEDS: HYDROcodone/APAP 5 MG/325 MG (LORTAB) TAB PO PRN ×3 (11:44→20:49)
--- NOTE | 2020-03-30 14:21 | NUR ---
"RD ASSESSMENT PMHx: HTN; chronic diarrhea; PT INTERACTION: Note pt is currently in COVID isolation, per chart review. Note all diet information for nutrition assessment for LOS is per Penelope or per chart review. Keeleymiguel a states current appetite appears okay. Note avg PO intake 50-75% x4d, per chart review. Penelope states some issues with nausea that she is aware of, and that her last BM was 03/29. Note pt currently on bowel regimen of colace BID, per chart review. Note unable to determine recent wt hx, per chart review. Est. kcal needs: 8433-3023 kcal | 15-18 kcal/kg Est. Pro needs: 84-105 g Pro | 0.8-1.0 g Pro/kg PES STATEMENT: Inadequate oral intake (NI-2.1) related to loss of appetite and nausea, as evidenced by chart review, communication with RN, and avg PO intake 50-75% x4d. INTERVENTION: Continue with current diet order of Regular diet. Pt may benefit from nutrition supplementation if PO intake declines. Will continue to follow and reassess as pt needs, intake, and status change. Alyssa SNELL, MS RD LD [phone] cell"
[2020-03-30 16:09] VITALS: BP 119/73
[2020-03-30] MEDS: MELATONIN 3 MG TABLET PO SCH (20:49)
[2020-03-30 23:46] VITALS: BP 138/77
[2020-03-31] MEDS: RT-ALBUTEROL INHALER HFA (VENTOLIN HFA) 18 GM IH SCH ×6 (03:00→21:17)
[2020-03-31] MEDS: guaiFENesin/CODEINE (ROBITUSSIN AC) 10ML UDC PO PRN ×3 (03:37→15:55)
[2020-03-31] MEDS: HYDROcodone/APAP 5 MG/325 MG (LORTAB) TAB PO PRN ×3 (07:59→21:17)
[2020-03-31 08:00] VITALS: BP 129/86
[2020-03-31] MEDS: FLUoxetine HCL 20 MG (PROzac) CAP PO SCH (09:21)
[2020-03-31] MEDS: DOCUSATE SODIUM 100 MG (COLACE) CAP PO SCH ×2 (09:22→21:17)
[2020-03-31] MEDS: PANTOPRAZOLE 40 MG (PROTONIX) TAB PO SCH (09:22)
[2020-03-31] MEDS: ENOXAPARIN 100 MG/1 ML (LOVENOX) SYR SC SCH ×2 (09:22→21:17)
--- NOTE | 2020-03-31 09:44 | Progress Note - Hospitalist ---
Subjective HPI/CC On Admission Date Seen by Provider: Mar 31, 2020 Time Seen by Provider: 09:42 Comfort Pruitt is a 39-year-old female who presented with shortness of breath. She was recently diagnosed with COVID-19. She isn't having symptoms for about a week. 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 She is having some chest tightness. She had some diarrhea which is resolved. She has had some issues with her sense of smell. She denies any abdominal pain, nausea, or vomiting. She denies any leg swelling or pain. She had been taking Decadron, azithromycin, and some other supplements as an outpatient. Subjective/Events-last exam Pt reports doing well today. No complaints. Down to 3lpm NC today. Hopeful to be able to go home tomorrow. Objective Exam Vital Signs Vital Signs Date Time Temp Pulse Resp B/P (MAP) Pulse Ox O2 Delivery O2 Flow Rate FiO2 03/31/20 08:00 36.4 107 18 129/86 (100) 97 High Flow N/C 4.00 03/28/20 21:56 40 Capillary Refill : Less Than 3 Seconds General Appearance: No Apparent Distress, WD/WN Respiratory: Lungs Clear, No Accessory Muscle Use; No Crackles, No Wheezing; Other (on 3lpm NC) Cardiovascular: Regular Rate, Rhythm, No Murmur Gastrointestinal: Normal Bowel Sounds, Non Tender, Soft Neurologic/Psychiatric: Alert, Oriented x3, Normal Mood/Affect Results/Procedures Lab Patient resulted labs reviewed. Imaging: Reviewed Imaging Report Assessment/Plan Assessment and Plan Assess & Plan/Chief Complaint COVID PNA -Down to 3lpm NC -Decadron day 8 -s/p Remdesivir -Proning as able -s/p CVP - Hopefully home tomorrow, home oxygen study ordered DDIMer increased to 13 -Lovenox theraputic dosing -will continue anticoagulation for at least 3mo for suspect DVT/PE GI/DVT ppx Clinical Quality Measures DVT/VTE Risk/Contraindication: Risk Factor Score Per Nursin RFS Level Per Nursing on Admit: 3=High BRITNEY ALATORRE MD Mar 31, 2020 09:44
--- NOTE | 2020-03-31 15:03 | NUR ---
CM/SS: Telephone Call ([phone]) to pt Via cell phone - to discuss discharge plan and pt's oxygen company. Pt would like [facility] out of [place]. 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 She verbalizes understanding.
[2020-03-31 15:23] VITALS: BP 126/76
[2020-03-31] MEDS: ALPRAZolam 0.5 MG (XANAX) TAB PO PRN (15:46)
--- NOTE | 2020-03-31 15:57 | NUR ---
PATIENT QUALIFIES FOR 3L WHILE AMBULATORY Addendum: 03/31/20 at 1557 by CHELSY PARHAM RT Amended: Links added.
[2020-03-31] MEDS: MELATONIN 3 MG TABLET PO SCH (21:17)
[2020-03-31 23:53] VITALS: BP 115/66
[2020-04-01] MEDS: RT-ALBUTEROL INHALER HFA (VENTOLIN HFA) 18 GM IH SCH ×3 (02:22→11:15)
[2020-04-01 08:25] VITALS: BP 113/73
[2020-04-01] MEDS: ALPRAZolam 0.5 MG (XANAX) TAB PO PRN ×2 (08:57→12:08)
[2020-04-01] MEDS: DOCUSATE SODIUM 100 MG (COLACE) CAP PO SCH (08:57)
[2020-04-01] MEDS: PANTOPRAZOLE 40 MG (PROTONIX) TAB PO SCH (08:57)
[2020-04-01] MEDS: guaiFENesin/CODEINE (ROBITUSSIN AC) 10ML UDC PO PRN (08:58)
[2020-04-01] MEDS: FLUoxetine HCL 20 MG (PROzac) CAP PO SCH (08:58)
[2020-04-01] MEDS ORDERED: ACHD5005 PO (09:59)
[2020-04-01] MEDS ORDERED: Guaifenesin/Codeine PO (09:59)
[2020-04-01] MEDS ORDERED: APIX5TAB PO (09:59)
--- NOTE | 2020-04-01 10:02 | Discharge Inst-Simple/Standard ---
Discharge Inst-Standard Discharge Medications New, Converted or Re-Newed RX: RX on Chart Patient Instructions/Follow Up Plan of Care/Instructions/FU: Please continue to take your medications as written. Please follow with your primary care doctor next week to follow up this hospital stay. Activity as Tolerated: Yes Discharge Diet: No Restrictions Return to The Hospital For: Chest pain, shortness of breath, fever, worsening cough, confusion, if you feel you are getting worse. BRITNEY ALATORRE MD Apr 01, 2020 10:02
[2020-04-01] MEDS: ENOXAPARIN 100 MG/1 ML (LOVENOX) SYR SC SCH (10:04)
--- NOTE | 2020-04-01 10:10 | Discharge Summary ---
Diagnosis/Chief Complaint Date of Admission Mar 23, 2020 at 15:48 Date of Discharge Discharge Date: Apr 01, 2020 Admission Diagnosis Acute respiratory failure due to COVID-19 Primary Care Radha Garcia Aprn Discharge Diagnosis (1) Acute respiratory failure due to COVID-19 Status: Acute (2) Anxiety Status: Acute (3) Hypokalemia Status: Resolved (4) Obesity Status: Chronic Discharge Summary Discharge Physical Exam Allergies: Coded Allergies: cephalexin (Verified Allergy, Intermediate, HIVES, 10/30/16) Vitals & I&Os Vital Signs Date Time Temp Pulse Resp B/P (MAP) Pulse Ox O2 Delivery O2 Flow Rate FiO2 04/01/20 11:09 04/01/20 08:30 Room Air 04/01/20 08:25 36.6 98 20 93 3.00 03/28/20 21:56 40 General Appearance: No Apparent Distress, WD/WN Respiratory: Lungs Clear, No Respiratory Distress Cardiovascular: Regular Rate, Rhythm, No Murmur Gastrointestinal: Normal Bowel Sounds, Non Tender, Soft Neurologic/Psychiatric: Alert, Oriented x3 Hospital Course Patient was admitted with acute hypoxic respiratory failure due to COVID-19. She was treated with decadron, convalescent plasma, and Remdesivir. He did well and was able to be titrated off of oxygen completely at rest and only required exertional oxygen. She was discharged home in stable and improved condition to follow-up with his primary care provider. Labs (last 24 hrs) Microbiology 03/24/20 Influenza Types A,B Antigen (KIA) - Final, Complete Patient resulted labs reviewed. Imaging: Reviewed Imaging Report Discussion & Recommendations Discharge Planning: >30 minutes discharge planning Discharge Home Medications: Active Scripts Active Eliquis (Apixaban) 5 Mg Tablet 5 Mg PO BID [Guaifenesin/Codeine] 10 ML Syrp 5 Ml PO Q4H PRN Hydrocodone-Acetamin 5-325 mg (Hydrocodone/Acetaminophen) 1 Each Tablet 1 Tab PO Q4H PRN Reported Vitamin D3 (Cholecalciferol (Vitamin D3)) 1,250 Mcg Capsule 1,250 Mcg PO MON Amphetamine Salts 30 mg Tablet (Dextroamphetamine/Amphetamine) 30 Mg Tablet 30 Mg PO BID PRN Gllfuo-Hsrqbsdx-Sxfj 50-300-40 (Butalb/Acetaminophen/Caffeine) 1 Each Capsule 1 Ea PO Q6H PRN Alprazolam 0.5 Mg Tablet 0.5 Mg PO DAILY PRN Lisinopril 10 Mg Tablet 10 Mg PO DAILY Ventolin Hfa (Albuterol Sulfate) 18 Gm Hfa.aer.ad 2 Puff INH Q4H PRN Fluoxetine HCl 40 Mg Capsule 40 Mg PO DAILY Hydrochlorothiazide 12.5 Mg Tablet 12.5 Mg PO DAILY Ibuprofen 800 Mg Tablet 800 Mg PO TID PRN Progesterone (Progesterone,Micronized) 100 Mg Capsule 100 Mg PO DAILY Instructions to patient/family Please see electronic discharge instructions given to patient. Clinical Quality Measures DVT/VTE Risk/Contraindication: Risk Factor Score Per Nursin RFS Level Per Nursing on Admit: 3=High Copy Copies To 1: SELF,BRITNEY MICHAEL MD, MD Apr 01, 2020 10:10
--- NOTE | 2020-04-01 10:16 | NUR ---
Notified she will be out of isolation when she is discharged.
--- NOTE | 2020-04-01 11:13 | NUR ---
Provided education to Comfort about eliquis, she was aware of the medication and did not have any questions.
[2020-04-01] MEDS ORDERED: ALPRAZolam 0.5 MG (XANAX) TAB PO NR (12:15)
--- NOTE | 2020-04-01 14:01 | NUR ---
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 Information is faxed to [facility] - [phone]. [facility] notified that the oxygen is ready whenever the ride can pick it up. This worker will follow up.
== END 2020-04-01 14:15 | disposition home or self-care (01) | DRG 177 ==
LOC: 4TH 15:48 → CSD 03-24 11:52 → 4TH 03-29 09:32
PROVIDERS: ADMIT Family Medicine; ATTEND Internal Medicine
PROC: XW13325 Transfusion of Convalescent Plasma (Nonautologous) into Peripheral Vein, Percutaneous Approach, New Technology Group 5 (ICD-10-PCS; principal; 2020-03-23)
PROC: XW033E5 Introduction of Remdesivir Anti-infective into Peripheral Vein, Percutaneous Approach, New Technology Group 5 (ICD-10-PCS; 2020-03-23)
DX: U07.1 COVID-19 (principal); J12.82 Pneumonia due to coronavirus disease 2019; J96.01 Acute respiratory failure with hypoxia; Z88.1 Allergy status to other antibiotic agents; I10 Essential (primary) hypertension; F41.9 Anxiety disorder, unspecified; F32.9 Major depressive disorder, single episode, unspecified; F43.10 Post-traumatic stress disorder, unspecified; E87.6 Hypokalemia; E66.9 Obesity, unspecified; M54.9 Dorsalgia, unspecified; Z68.38 Body mass index [BMI] 38.0-38.9, adult; Z73.0 Burn-out
CPT/HCPCS: 36415; 71045; 80053; 82728; 82805; 83605; 83735; 83880; 84100; 84145; 85025; 85379; 86141; 86900; 86901; 87804; 94640; 94664; 94760; 94761

== ENCOUNTER → 2020-04-19 | Outpatient (CLI) | payer OTHER ==
[~2020-04-19] MED LIST changes: +ALBU18HF2 INH; +ALPR0.5T7 PO; +APIX5TAB PO; +AZIT250T12 PO; +BUTA1CAP41 PO; +DEXA6TAB PO; +DEXT30TA12 PO; +FLUO40CA PO; +Guaifenesin/Codeine PO; +HYDR12.56 PO; +IBUP-1780 PO; +LISI10TA2 PO
--- NOTE | 2020-04-19 15:18 | Diagnostic Imaging Report ---
INDICATION: Shortness of breath, history of COVID. COMPARISON: 03/28/2020 TECHNIQUE: Two radiographs of the chest dated 04/19/2020. FINDINGS: The cardiac silhouette is within normal limits in size. No significant pulmonary vascular congestion. Previously noted extensive bilateral interstitial opacities have significantly improved since the prior examination with minimal persisting bibasilar interstitial opacities, left greater than right. Small 0.6 cm more focal nodular density is noted overlying the left midlung. No significant pleural effusion. No pneumothorax. No acute osseous abnormality. IMPRESSION: Significantly improved and nearly resolved bilateral interstitial opacities with minimal persisting bibasilar interstitial infiltrate. This is felt related to improving and resolving COVID given provided history. A 0.6 cm nodular density overlying the left midlung. This may relate to minimal persisting interstitial infiltrate, though true pulmonary nodule should be considered. Recommend follow-up radiograph of the chest in 2-3 weeks. If this persists, then a dedicated CT of the chest would be recommended. Dictated by: Dictated on workstation # [id number]
== END ==
LOC: RAD FS 11:25
PROVIDERS: ATTEND Nurse Practitioner Family
DX: R91.8 Other nonspecific abnormal finding of lung field (principal); R06.02 Shortness of breath; Z86.16 Personal history of COVID-19
CPT/HCPCS: 71046

== ENCOUNTER → 2020-05-16 | Outpatient (CLI) | payer OTHER ==
[~2020-05-16] MED LIST changes: -LISI10TA2 PO; +LISI10TA25 PO
--- NOTE | 2020-05-16 14:06 | Diagnostic Imaging Report ---
INDICATION: Chest pain, shortness of breath. EXAMINATION: PA and lateral chest. FINDINGS: The heart size and pulmonary vascularity are normal. The lungs are clear. There are no effusions or pneumothoraces. IMPRESSION: Negative chest. Dictated by: Dictated on workstation # [id number]
== END ==
LOC: RAD FS 13:35
PROVIDERS: ATTEND Nurse Practitioner Family
DX: R07.9 Chest pain, unspecified (principal); R06.02 Shortness of breath; Z86.16 Personal history of COVID-19
CPT/HCPCS: 71046

== ENCOUNTER → 2020-06-06 | Outpatient (CLI) | payer OTHER | LOC: CARD 13:20 | PROVIDERS: ATTEND Nurse Practitioner Family | DX: R06.02 Shortness of breath (principal); R68.89 Other general symptoms and signs; Z86.16 Personal history of COVID-19 | CPT/HCPCS: 93306 ==

== ENCOUNTER → 2020-09-15 | Outpatient (CLI) | payer OTHER ==
--- NOTE | 2020-09-15 13:45 | Diagnostic Imaging Report ---
PROCEDURE: CT urinary tract, rule out kidney stone. TECHNIQUE: Multiple contiguous axial images were obtained through the abdomen and pelvis without the use of intravenous contrast. Auto Exposure Controls were utilized during the CT exam to meet ALARA standards for radiation dose reduction. INDICATION: Right-sided abdominal pain. COMPARISON: Comparison is made with prior CT from 11/12/2016. FINDINGS: The lung bases are clear. The liver is unremarkable. Gallbladder is surgically absent. No biliary ductal dilatation is seen. Pancreas and spleen are unremarkable. No adrenal mass is detected. No definite renal calculi are identified. No ureteral calculi or hydronephrosis is identified. Aorta is nonaneurysmal. Small and large bowel loops are normal in caliber. Appendix is unremarkable. There is no free fluid or fluid collection. The uterus is unremarkable. There is a small fat-containing umbilical hernia. IMPRESSION: No evidence of urinary tract calculi or obstruction. No acute features identified. Dictated by: Dictated on workstation # [id number]
== END ==
LOC: RAD FS 13:20
PROVIDERS: ATTEND Nurse Practitioner Family
DX: R10.9 Unspecified abdominal pain (principal); Z87.442 Personal history of urinary calculi
CPT/HCPCS: 74176

== ENCOUNTER 2021-11-16 12:25 | Observation (INO) | payer OTHER ==
[2021-11-16] VITALS (28 sets, daily range): BP systolic 123–165; BP diastolic 77–105
[~2021-11-16] VITALS: Ht 165.1 cm; Wt 113.6 kg
[~2021-11-16 12:25] MED LIST changes: -SULF1TAB35 PO; +SULF1TAB38 PO
[2021-11-16 12:56] LABS: BASOPHILS # (AUTO) 0.1 10^3/uL (0.0-0.1); BASOPHILS % (AUTO) 0 % (0-10); EOSINOPHILS # (AUTO) 0.2 10^3/uL (0.0-0.3); EOSINOPHILS % (AUTO) 1 % (0-10); HEMATOCRIT 43 % (35-52); HEMOGLOBIN 14.3 g/dL (11.5-16.0); LYMPHOCYTES # (AUTO) 8.5 10^3/uL (1.0-4.0); LYMPHOCYTES % (AUTO) 38 % (12-44); MEAN CORPUSCULAR HEMOGLOBIN 31 pg (25-34); MEAN CORPUSCULAR HGB CONC 33 g/dL (32-36); MEAN CORPUSCULAR VOLUME 92 fL (80-99); MEAN PLATELET VOLUME 10.4 fL (9.0-12.2); MONOCYTES # (AUTO) 1.6 10^3/uL (0.0-1.0); MONOCYTES % (AUTO) 7 % (0-12); NEUTROPHILS % (AUTO) 53 % (42-75); PLATELET COUNT 310 10^3/uL (130-400); WHITE BLOOD COUNT 22.6 10^3/uL (4.3-11.0)
[2021-11-16 13:00] LABS: ALBUMIN 4.4 GM/DL (3.2-4.5); CHLORIDE 102 MMOL/L (98-107); POTASSIUM 3.1 MMOL/L (3.6-5.0); SODIUM 136 MMOL/L (135-145)
[2021-11-16] MEDS ORDERED: diphenhydrAMINE 50 MG/ML INJ (BENADRYL) IVP PRN (13:00)
[2021-11-16] MEDS ORDERED: ONDANSETRON 4 MG/2 ML (SDV) Z0FRAN IV PRN (13:00)
[2021-11-16] MEDS ORDERED: LACTULOSE SYRUP 10GM/15ML (ENULOSE) 30ML UDC PO PRN (13:00)
[2021-11-16] MEDS ORDERED: ANTACID SUSP 30 ML UDC (MYLANTA) PO PRN (13:00)
[2021-11-16] MEDS ORDERED: BISACODYL 10 MG SUPP (DULCOLAX) PR PRN (13:00)
[2021-11-16] MEDS ORDERED: NS IV 500 ML 500 ML IV PRN (13:00)
[2021-11-16] MEDS ORDERED: morphine INJ 4 MG/ML 1 ML (VIAL/SYRINGE) IV PRN (13:00)
[2021-11-16] MEDS ORDERED: MILK OF MAGNESIA 400 MG/5 ML 30 ML UDC PO PRN (13:00)
[2021-11-16] MEDS ORDERED: ONDANSETRON 4 MG (ZOFRAN) ORAL DISSOLVE TAB PO PRN (13:00)
[2021-11-16] MEDS ORDERED: NALOXONE 0.4 MG/ML 1 ML (NARCAN) VIAL IV PRN (13:00)
[2021-11-16] MEDS ORDERED: diphenhydrAMINE 25 MG TAB (BENADRYL) PO PRN (13:00)
[2021-11-16] MEDS ORDERED: MELATONIN 3 MG TABLET PO PRN (13:00)
[2021-11-16] MEDS ORDERED: CALCIUM CARBONATE 500 MG (TUMS) TAB.CHEW PO PRN (13:00)
[2021-11-16] MEDS ORDERED: polyethylene glycoL POWDER 17 GM (MIRALAX) PACK PO PRN (13:00)
[2021-11-16 13:02] LABS: CALCIUM 9.3 MG/DL (8.5-10.1)
[2021-11-16 13:03] LABS: GLUCOSE 128 MG/DL (70-105); TOTAL PROTEIN 7.6 GM/DL (6.4-8.2)
[2021-11-16 13:04] LABS: CARBON DIOXIDE 11 MMOL/L (21-32)
[2021-11-16 13:05] LABS: BILIRUBIN,TOTAL 0.4 MG/DL (0.1-1.0)
[2021-11-16 13:06] LABS: ALKALINE PHOSPHATASE 65 U/L (40-136); CREATININE SERUM 0.91 MG/DL (0.60-1.30); GFR ESTIMATED 80
[2021-11-16 13:08] LABS: BUN/CREATININE RATIO 21
[2021-11-16 13:09] LABS: ALANINE AMINOTRANSFERASE 18 U/L (0-55); PROTHROMBIN TIME PATIENT 13.8 SEC (12.2-14.7)
--- NOTE | 2021-11-16 13:13 | Tele-ICU Consult ---
History of Present Illness History of Present Illness Date Seen by Provider: Nov 16, 2021 Time Seen by Provider: 13:11 Date of Admission (Tele-ICU Physician , consultation) Available chart/ vitals / labs / Images reviewed Now in ICU, hemodynamically stable , tachycardia - 130 sinus Video assessment done using teleICU camera, rest of exam as per RN Discussed with RN. 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 her shift , unprovoked ( observed by MD A/P New onset of seizures- unprovoked ( observed by MD - resolved spontaneously , post ictal for minutes , AAO now , can not recall any aura pre-sz - keppra orderd Etiology not clear now - CTH WO contrast to r/o ICH/CVA - neuro exam is nonfocal now labs pending to r/o electrolyte derangements ROS - denies symptoms suggestive of local or systemic bacterial or viral infection, no h/o thromboembolic propensity , no new medication started , no meds recently stopped , no trauma or injury , no bites Lines : , (Central Line Necessity Reviewed) Najera: OG: Nutrition: Analgesia: Anxiety/ delirium VTE Prophylaxis: Stress Ulcer Prophylaxis: Plans in collaboration with bedside consultants and IM MDs. Discussed with RN to reach out if any questions or concerns A total of 20 minutes of critical care time was devoted to this patient today, required to treat and/or prevent further deterioration of critical care condition ( as above ) . Allergies and Home Medications Allergies Coded Allergies: cephalexin (Verified Allergy, Intermediate, HIVES, 10/30/16) Home Medications Albuterol Sulfate 18 Gm Hfa.aer.ad, 2 PUFF INH Q4H PRN for SHORTNESS OF BREATH, (Reported) Alprazolam 0.5 Mg Tablet, 0.5 MG PO DAILY PRN for ANXIETY, (Reported) Apixaban 5 Mg Tablet, 5 MG PO BID Prescribed by: BRITNEY ALATORRE on 04/01/20 0959 Butalb/Acetaminophen/Caffeine 1 Each Capsule, 1 EA PO Q6H PRN for MIGRAINE, (Reported) Cholecalciferol (Vitamin D3) 1,250 Mcg Capsule, 1,250 MCG PO MON, (Reported) Dextroamphetamine/Amphetamine 30 Mg Tablet, 30 MG PO BID PRN for ADD, (Reported) Fluoxetine HCl 40 Mg Capsule, 40 MG PO DAILY, (Reported) Hydrochlorothiazide 12.5 Mg Tablet, 12.5 MG PO DAILY, (Reported) Hydrocodone/Acetaminophen 1 Each Tablet, 1 TAB PO Q4H PRN for PAIN-MODERATE (5- 7) Prescribed by: BRITNEY ALATORRE on 04/01/20 0959 Ibuprofen 800 Mg Tablet, 800 MG PO TID PRN for PAIN-MILD (1-4), (Reported) Lisinopril 10 Mg Tablet, 10 MG PO DAILY, (Reported) Progesterone,Micronized 100 Mg Capsule, 100 MG PO DAILY, (Reported) [Guaifenesin/Codeine] 10 ML SYRP, 5 ML PO Q4H PRN for cough Prescribed by: BRITNEY ALATORRE on 04/01/20 0959 Past Medical/Social/Family Hx Immunizations Up To Date Tetanus Booster (TDap): Less Than 5 Years Hepatitis A: Yes Hepatitis B: Yes TB Skin Test: Negative Current Status Primary Language: Tamazight Review of Systems Constitutional: see HPI Focused Exam Lactate Level 11/16/21 12:25: Height, Weight, BMI Height: 5'5.00" Weight: 165lbs. 0.0oz. 74.236594se; 38.33 BMI Method:Stated Lactic Acid Level Laboratory Tests Test 11/16/21 12:25 Exam Exam Patient acknowledged, consented, and participated in this virtual visit which was conducted using real time audio/video Height & Weight Height: 5'5.00" Weight: 165lbs. 0.0oz. 74.135145qd; 38.33 BMI Method:Stated General Appearance: WD/WN Results Lab Laboratory Tests 11/16/21 12:25 Assessment/Plan Assessment/Plan 1 DANIEL ZAMUDIO MD Nov 16, 2021 13:13
--- NOTE | 2021-11-16 13:16 | Diagnostic Imaging Report ---
PROCEDURE: CT head without contrast. TECHNIQUE: Multiple contiguous axial images were obtained through the brain without the use of intravenous contrast. Auto Exposure Controls were utilized during the CT exam to meet ALARA standards for radiation dose reduction. INDICATION: 41-year-old female, seizure during work, slow to respond. CORRELATION: None FINDINGS: There is no midline shift or mass effect. The ventricles and sulci are unremarkable. No evidence for acute intracranial hemorrhage, abnormal extra-axial fluid collections or cerebral edema is present. The basilar cisterns are unremarkable. The bony calvarium is intact. The visualized paranasal sinuses and mastoid air cells are clear. Prior bilateral sinus surgery. IMPRESSION: Negative appearing noncontrast CT of the head. Dictated by: Dictated on workstation # [id number]
[2021-11-16 13:17] LABS: ABG BASE EXCESS -12.8 MMOL/L (-2.5-2.5); ABG OXYGEN SATURATION 97 % (94-100); ABG PCO2 28 MMHG (35-45); ABG PO2 81 MMHG (79-93); ABG TCO2 13.5 MMOL/L (21.0-31.0)
[2021-11-16 13:17] LABS: AMPHETAMINE SCREEN, URINE NEGATIVE (NEGATIVE); BARBITURATE SCREEN URINE NEGATIVE (NEGATIVE); BENZODIAZEPINES SCREEN URINE NEGATIVE (NEGATIVE); CANNABINOID SCREEN, URINE NEGATIVE (NEGATIVE); COCAINE SCREEN URINE NEGATIVE (NEGATIVE); METHADONE STAT NEGATIVE (NEGATIVE); OPIATE SCREEN URINE NEGATIVE (NEGATIVE); OXYCODONE STAT NEGATIVE (NEGATIVE); PROPOXYPHENE STAT NEGATIVE (NEGATIVE); TRICYCLIC ANTIDEPRESSANTS SCRE NEGATIVE (NEGATIVE)
--- NOTE | 2021-11-16 13:17 | History & Physical ---
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 Less than a minute prior she was completely fine, speaking with coworkers about what she was going to have for lunch. She was quickly rolled onto her side and no aspiration was witnessed. The seizure resolved before valium had to be administered and the patient went into a post-ictal state. She has no known history of seizures. She has had COVID twice, most recently 1 year ago that required hospitalization but never required intubation. She reports still having some lingering cognitive symptoms such as difficulty finding words and feeling foggy on occasion. She denies any pre-seizure aura or abnormal feelings/sensations but does not remember much of the seconds leading up to it. She has not had any recent animal/insect bites she is aware of and has not traveled out of country recently. Denies being aware of any acute illnesses. Date of Admission Nov 16, 2021 at 12:25 Date Seen by a Provider: Nov 16, 2021 Time Seen by a Provider: 13:00 I consulted on this patient on 11/16/21 12:58 Attending Physician Radha Garcia Aprn Admitting Physician Admitting Physician: Nelida Arita DO Attending Physician: Nelida Arita DO Consult Allergies and Home Medications Allergies Coded Allergies: cephalexin (Verified Allergy, Intermediate, HIVES, 10/30/16) Patient Home Medication List Acetaminophen (Tylenol Extra Strength) 500 Mg Tablet, 500-1,000 MG PO Q8H PRN for PAIN-MILD (1-4), (Reported) Entered as Reported by: MILA ROMEO on 11/16/21 1144 Last Action: Reviewed Alprazolam (Alprazolam) 0.5 Mg Tablet, 0.5 MG PO DAILY PRN for ANXIETY, (Reported) Entered as Reported by: MILA ROMEO on 03/25/20 4526 Last Action: Reviewed Baclofen (Baclofen) 10 Mg Tablet, 10 MG PO TID PRN for MUSCLE SPASMS, (Reported) Entered as Reported by: MILA ROMEO on 11/16/21 4462 Last Action: Reviewed Diphenhydramine HCl (Benadryl) 25 Mg Capsule, 25-50 MG PO Q8H PRN for SLEEP, (Reported) Entered as Reported by: MILA ROMEO on 11/16/211453 Last Action: Reviewed Ergocalciferol (Vitamin D2) (Vitamin D2) 1,250 Mcg (74640 Unit) Capsule, 1,250 MCG PO WEEK, (Reported) Entered as Reported by: MILA ROMEO on 11/16/211453 Last Action: Reviewed Eszopiclone (Eszopiclone) 1 Mg Tablet, 1 MG PO HS PRN for SLEEP, (Reported) Entered as Reported by: MILA ROMEO on 11/16/211453 Last Action: Reviewed Ibuprofen (Ibuprofen) 200 Mg Capsule, 400-800 MG PO Q8H PRN for PAIN-MILD (1-4), (Reported) Entered as Reported by: MILA ROMEO on 11/16/211453 Last Action: Reviewed Discontinued Medications Albuterol Sulfate (Ventolin Hfa) 18 Gm Hfa.aer.ad, 2 PUFF INH Q4H PRN for SHORTNESS OF BREATH, (Reported) Discontinued Reason: No Longer Taking Entered as Reported by: MILA ROMEO on 03/25/201535 Last Action: Discontinued Apixaban (Eliquis) 5 Mg Tablet, 5 MG PO BID Discontinued Reason: No Longer Taking Prescribed by: BRITNEY ALATORRE on 04/01/20 8001 Last Action: Discontinued Butalb/Acetaminophen/Caffeine (Yqnqah-Abnclewc-Coxi 50-300-40) 1 Each Capsule, 1 EA PO Q6H PRN for MIGRAINE, (Reported) Discontinued Reason: No Longer Taking Entered as Reported by: MILA ROMEO on 03/25/201535 Last Action: Discontinued Cholecalciferol (Vitamin D3) (Vitamin D3) 1,250 Mcg Capsule, 1,250 MCG PO MON, (Reported) Discontinued Reason: No Longer Taking Entered as Reported by: MILA ROMEO on 03/25/201535 Last Action: Discontinued Dextroamphetamine/Amphetamine (Amphetamine Salts 30 mg Tablet) 30 Mg Tablet, 30 MG PO BID PRN for ADD, (Reported) Discontinued Reason: No Longer Taking Entered as Reported by: MILA ROMEO on 03/25/201535 Last Action: Discontinued Fluoxetine HCl (Fluoxetine HCl) 40 Mg Capsule, 40 MG PO DAILY, (Reported) Discontinued Reason: No Longer Taking Entered as Reported by: MILA ROMEO on 03/25/201535 Last Action: Discontinued Hydrochlorothiazide (Hydrochlorothiazide) 12.5 Mg Tablet, 12.5 MG PO DAILY, (Reported) Discontinued Reason: No Longer Taking Entered as Reported by: MILA ROMEO on 03/25/201534 Last Action: Discontinued Hydrocodone/Acetaminophen (Hydrocodone-Acetamin 5-325 mg) 1 Each Tablet, 1 TAB PO Q4H PRN for PAIN-MODERATE (5-7) Discontinued Reason: No Longer Taking Prescribed by: BRITNEY ALATORRE on 04/01/2059 Last Action: Discontinued Ibuprofen (Ibuprofen) 800 Mg Tablet, 800 MG PO TID PRN for PAIN-MILD (1-4), (Reported) Discontinued Reason: No Longer Taking Entered as Reported by: MILA ROMEO on 03/25/201534 Last Action: Discontinued Lisinopril (Lisinopril) 10 Mg Tablet, 10 MG PO DAILY, (Reported) Discontinued Reason: No Longer Taking Entered as Reported by: MILA ROMEO on 03/25/201535 Last Action: Discontinued Progesterone,Micronized (Progesterone) 100 Mg Capsule, 100 MG PO DAILY, (Reported) Discontinued Reason: No Longer Taking Entered as Reported by: JERZY MALDONADO on 10/30/16 1028 Last Action: Discontinued [Guaifenesin/Codeine] 10 ML SYRP, 5 ML PO Q4H PRN for cough Discontinued Reason: No Longer Taking Prescribed by: BRITNEY ALATORRE on 04/01/20958 Last Action: Discontinued Past Skhymrv-Uxvxom-Qogrsv Hx Immunizations Up To Date Date of Influenza Vaccine: Nov 23, 2019 Tetanus Booster (TDap): Less Than 5 Years Hepatitis A: Yes Hepatitis B: Yes PED Vaccines UTD: No Seasonal Allergies Seasonal Allergies: Yes Current Status Primary Language: [place] Citizen Past Medical History Surgeries: Section, Gallbladder Hypertension Headaches /Migraines Sexually Transmitted Disease: No HIV/AIDS: No Kidney Stones Chronic Diarrhea Loss of Vision: Bilateral Hearing Impairment: Denies Anxiety, PTSD, Depression Blood Disorders: No Adverse Reaction/Blood Tranf: No Physical Exam Vital Signs Vital Signs - First Documented 11/16/21 12:20 Pulse 154 B/P (MAP) 150/91 (110) Capillary Refill : Height, Weight, BMI Height: 5'5.00" Weight: 165lbs. 0.0oz. [id number]; 38.33 BMI Method:Stated General Appearance: Mild Distress, Obese HEENT: PERRL/EOMI, Moist Mucous Membranes Neck: Non Tender, Supple Respiratory: Lungs Clear, Normal Breath Sounds, No Accessory Muscle Use, No Respiratory Distress Cardiovascular: No Murmur, Normal Peripheral Pulses, Tachycardia Gastrointestinal: Normal Bowel Sounds, Non Tender, Soft Extremity: Normal Capillary Refill, No Pedal Edema Neurologic/Psychiatric: Alert, Oriented x3, No Motor/Sensory Deficits Skin: Diaphoresis Lymphatic: No Adenopathy Assessment/Plan Assessment and Plan New onset seizure Pt stable now in ICU, receiving IV fluids and Keppra CT head and CXR were both unremarkable. No clear etiology but patient did have a severe COVID infection 1 year ago and reports still having some occasional brain fog/difficulty finding words. Elevated white count with no obvious sign of infection. Awaiting blood culture results. Do not feel lumbar puncture is necessary at this point in time, will reassess tomorrow AM after rechecking white count and blood culture results. 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 It spontaneously resolved without Valium administration. MAIA VALENZUELA was called in order to obtain help with the situation. Patient was ultimately transitioned to a slide board onto the ICU bed and placed in ICU 2. IV fluids administered for tachycardia which is sinus type on EKG and Keppra was infused. eICU consulted after I updated in depth. Work-up will ensue. Allergies and Home Medications Allergies Coded Allergies: cephalexin (Verified Allergy, Intermediate, HIVES, 10/30/16) Patient Home Medication List Home Medication List Reviewed: Yes Acetaminophen (Tylenol Extra Strength) 500 Mg Tablet, 500-1,000 MG PO Q8H PRN for PAIN-MILD (1-4), (Reported) Entered as Reported by: MILA ROMEO on 11/16/211453 Last Action: Reviewed Alprazolam (Alprazolam) 0.5 Mg Tablet, 0.5 MG PO DAILY PRN for ANXIETY, (Reported) Entered as Reported by: MILA ROMEO on 03/25/201535 Last Action: Reviewed Baclofen (Baclofen) 10 Mg Tablet, 10 MG PO TID PRN for MUSCLE SPASMS, (Reported) Entered as Reported by: MILA ROMEO on 11/16/211453 Last Action: Reviewed Diphenhydramine HCl (Benadryl) 25 Mg Capsule, 25-50 MG PO Q8H PRN for SLEEP, (Reported) Entered as Reported by: MILA ROMEO on 11/16/211453 Last Action: Reviewed Ergocalciferol (Vitamin D2) (Vitamin D2) 1,250 Mcg (76873 Unit) Capsule, 1,250 MCG PO WEEK, (Reported) Entered as Reported by: MILA ROMEO on 11/16/211453 Last Action: Reviewed Eszopiclone (Eszopiclone) 1 Mg Tablet, 1 MG PO HS PRN for SLEEP, (Reported) Entered as Reported by: MILA ROMEO on 11/16/211453 Last Action: Reviewed Ibuprofen (Ibuprofen) 200 Mg Capsule, 400-800 MG PO Q8H PRN for PAIN-MILD (1-4), (Reported) Entered as Reported by: MILA ROMEO on 11/16/211453 Last Action: Reviewed Discontinued Medications Albuterol Sulfate (Ventolin Hfa) 18 Gm Hfa.aer.ad, 2 PUFF INH Q4H PRN for SHORTNESS OF BREATH, (Reported) Discontinued Reason: No Longer Taking Entered as Reported by: MILA ROMEO on 03/25/201535 Last Action: Discontinued Apixaban (Eliquis) 5 Mg Tablet, 5 MG PO BID Discontinued Reason: No Longer Taking Prescribed by: BRITNEY ALATORRE on 04/01/20 4856 Last Action: Discontinued Butalb/Acetaminophen/Caffeine (Ctrkdj-Mmqopxtn-Bnkv 50-300-40) 1 Each Capsule, 1 EA PO Q6H PRN for MIGRAINE, (Reported) Discontinued Reason: No Longer Taking Entered as Reported by: MILA ROMEO on 03/25/201535 Last Action: Discontinued Cholecalciferol (Vitamin D3) (Vitamin D3) 1,250 Mcg Capsule, 1,250 MCG PO MON, (Reported) Discontinued Reason: No Longer Taking Entered as Reported by: MILA ROMEO on 03/25/201535 Last Action: Discontinued Dextroamphetamine/Amphetamine (Amphetamine Salts 30 mg Tablet) 30 Mg Tablet, 30 MG PO BID PRN for ADD, (Reported) Discontinued Reason: No Longer Taking Entered as Reported by: MILA ROMEO on 03/25/201535 Last Action: Discontinued Fluoxetine HCl (Fluoxetine HCl) 40 Mg Capsule, 40 MG PO DAILY, (Reported) Discontinued Reason: No Longer Taking Entered as Reported by: MILA ROMEO on 03/25/201535 Last Action: Discontinued Hydrochlorothiazide (Hydrochlorothiazide) 12.5 Mg Tablet, 12.5 MG PO DAILY, (Reported) Discontinued Reason: No Longer Taking Entered as Reported by: MILA ROMEO on 03/25/201534 Last Action: Discontinued Hydrocodone/Acetaminophen (Hydrocodone-Acetamin 5-325 mg) 1 Each Tablet, 1 TAB PO Q4H PRN for PAIN-MODERATE (5-7) Discontinued Reason: No Longer Taking Prescribed by: BRITNEY ALATORRE on 04/01/2059 Last Action: Discontinued Ibuprofen (Ibuprofen) 800 Mg Tablet, 800 MG PO TID PRN for PAIN-MILD (1-4), (Reported) Discontinued Reason: No Longer Taking Entered as Reported by: MILA ROMEO on 03/25/201534 Last Action: Discontinued Lisinopril (Lisinopril) 10 Mg Tablet, 10 MG PO DAILY, (Reported) Discontinued Reason: No Longer Taking Entered as Reported by: MIAL ROMEO on 03/25/201535 Last Action: Discontinued Progesterone,Micronized (Progesterone) 100 Mg Capsule, 100 MG PO DAILY, (Reported) Discontinued Reason: No Longer Taking Entered as Reported by: JERZY MALDONADO on 10/30/16 1028 Last Action: Discontinued [Guaifenesin/Codeine] 10 ML SYRP, 5 ML PO Q4H PRN for cough Discontinued Reason: No Longer Taking Prescribed by: BRITNEY ALATORRE on 04/01/2059 Last Action: Discontinued Past Dkleije-Tbxkch-Yqedtu Hx Patient Social History Marrital Status: Employed/Student: employed Smoking Status: Never a Smoker Substance use?: No Alcohol Use?: No Review of Systems Constitutional: see HPI, malaise, weakness EENTM: no symptoms reported Respiratory: no symptoms reported Cardiovascular: no symptoms reported Gastrointestinal: no symptoms reported Genitourinary: no symptoms reported Musculoskeletal: no symptoms reported Skin: no symptoms reported Psychiatric/Neurological: Seizure All Other Systems Reviewed Negative Unless Noted: Yes Physical Exam General Appearance: Anxious, Moderate Distress, Obese Neck: Full Range of Motion, Normal Inspection, Non Tender, Supple, Carotid Bruit Respiratory: Chest Non Tender, Lungs Clear, Normal Breath Sounds, No Accessory Muscle Use, No Respiratory Distress Cardiovascular: No Murmur, Normal Peripheral Pulses, Tachycardia Gastrointestinal: Normal Bowel Sounds Neurologic/Psychiatric: Alert, Other (post ictal) Assessment/Plan Assessment and Plan Assessment: New onset seizure witnessed by this examiner Hypokalemia Elevated lactic acid due to muscle contractions from seizure Plan: ICU [facility] MRI tomorrow Problems: (1) Seizures Admission Diagnosis Admission Status: Observation Supervisory-Addendum Brief Verification & Attestation Participated in pt care: history, MDM, physical Personally performed: exam, history, MDM, supervision of care Care discussed with: Medical Student Procedures: n/a Results interpretation: Verified all documentation Verification and Attestation of Medical Student E/M Service A medical student performed and documented this service in my presence. I reviewed and verified all information documented by the medical student and made modifications to such information, when appropriate. I personally performed the physical exam and medical decision making. Nelida Arita Nov 17, 2021,06:25 GRUPO SO Nov 16, 2021 13:17 NELIDA ARITA DO Nov 17, 2021 06:17
[2021-11-16 13:19] LABS: ABG PH 7.28 (7.37-7.43)
[2021-11-16 13:20] LABS: PATIENT TEMP 36.5
--- NOTE | 2021-11-16 13:25 | Diagnostic Imaging Report ---
Indication: New onset seizure Portable chest 1:20 PM Heart size and pulmonary vascularity are normal. Lungs are clear. There are no effusions or pneumothoraces. IMPRESSION: No acute abnormalities in the chest Dictated by: Dictated on workstation # [id number]
[2021-11-16 13:36] LABS: BAND NEUTROPHILS 5 %; BASOPHILS % (MANUAL) 0 %; EOSINOPHILS % (MANUAL) 0 %; LYMPHOCYTES % (MANUAL) 43 %; MONOCYTES % (MANUAL) 8 %; NEUTROPHILS % (MANUAL) 44 %
[2021-11-16 13:37] LABS: RBC MORPH NORMAL
[2021-11-16] MEDS ORDERED: KCL 10 MEQ TAB (MICRO K) PO NR (14:00)
[2021-11-16] MEDS ORDERED: LORazepam INJ 2 MG/ML (ATIVAN) VIAL IVP PRN (14:00)
[2021-11-16] MEDS ORDERED: RT-ALBUTEROL SULF 2.5 MG/3 ML PRE-MIX VIAL INH PRN (14:15)
[2021-11-16] MEDS: NS IV 1000 ML 1,000 ML IV SCH (14:17)
[2021-11-16] MEDS ORDERED: POTASSIUM CL 10MEQ/50ML IVPB 200 ML IV ONE (14:19)
[2021-11-16] MEDS: POTASSIUM CL 10MEQ/50ML IVPB 50 ML IV SCH ×3 (14:22→18:45)
[2021-11-16 14:47] LABS: BILIRUBIN,URINE NEGATIVE (NEGATIVE); CLARITY,URINE CLEAR; COLOR,URINE YELLOW; GLUCOSE, URINE (UA) NEGATIVE (NEGATIVE); KETONES,URINE NEGATIVE (NEGATIVE); LEUKOCYTE ESTERASE ,URINE NEGATIVE (NEGATIVE); NITRITE,URINE NEGATIVE (NEGATIVE); PROTEIN,URINE TRACE (NEGATIVE)
[2021-11-16] MEDS ORDERED: ACET-2267 PO (14:54)
[2021-11-16] MEDS ORDERED: DIPH25CA79 PO (14:54)
[2021-11-16] MEDS ORDERED: ERGO1250 PO (14:54)
[2021-11-16] MEDS ORDERED: BACL10TA PO (14:54)
[2021-11-16] MEDS ORDERED: ESZO1TAB12 PO (14:54)
[2021-11-16] MEDS ORDERED: IBUP-2185 PO (14:54)
[2021-11-16 14:55] LABS: BACTERIA,URINE NEGATIVE /HPF; RBC,URINE RARE /HPF; SQUAMOUS EPITHELIAL CELL,UR RARE /HPF
[2021-11-16] MEDS ORDERED: amLODIPine 5 MG (NORVASC) TAB PO NR (16:30)
[2021-11-16] MEDS: inSUlin ASPART (NovoLOG) 1 UNIT/0.01 ML (CHARGE PER UNIT) SC SCH (17:05)
[2021-11-16 17:29] LABS: POTASSIUM 3.9 MMOL/L (3.6-5.0)
[2021-11-16 17:30] LABS: CALCIUM 8.5 MG/DL (8.5-10.1)
[2021-11-16 17:34] LABS: CREATININE SERUM 0.74 MG/DL (0.60-1.30)
[2021-11-16] MEDS: ACETAMINOPHEN 325 MG TABLET PO PRN ×2 (17:53→20:43)
[2021-11-16 18:16] LABS: ABG BASE EXCESS -3.7 MMOL/L (-2.5-2.5); ABG OXYGEN SATURATION 83 % (94-100); ABG PCO2 38 MMHG (35-45); ABG PH 7.36 (7.37-7.43); ABG PO2 49 MMHG (79-93); ABG TCO2 21.9 MMOL/L (21.0-31.0); VENTILATOR NO
[2021-11-17] VITALS (14 sets, daily range): BP systolic 103–142; BP diastolic 79–96
[2021-11-17] MEDS: NS IV 1000 ML 1,000 ML IV SCH ×3 (00:40→08:27)
[2021-11-17] MEDS: DOCUSATE SODIUM 100 MG (COLACE) CAP PO SCH ×2 (00:40→08:46)
[2021-11-17] MEDS: ACETAMINOPHEN 325 MG TABLET PO PRN ×2 (00:41→08:27)
[2021-11-17] MEDS: inSUlin ASPART (NovoLOG) 1 UNIT/0.01 ML (CHARGE PER UNIT) SC SCH ×3 (00:41→13:49)
[2021-11-17] MEDS: SENNOSIDES 8.6 MG (SENOKOT) TAB PO SCH ×2 (00:41→08:46)
[2021-11-17 05:16] LABS: BASOPHILS % (AUTO) 0 % (0-10); EOSINOPHILS % (AUTO) 1 % (0-10); HEMATOCRIT 36 % (35-52); LYMPHOCYTES # (AUTO) 2.5 10^3/uL (1.0-4.0); LYMPHOCYTES % (AUTO) 28 % (12-44); MEAN CORPUSCULAR HEMOGLOBIN 30 pg (25-34); MEAN CORPUSCULAR HGB CONC 34 g/dL (32-36); MEAN CORPUSCULAR VOLUME 89 fL (80-99); MONOCYTES # (AUTO) 0.6 10^3/uL (0.0-1.0); MONOCYTES % (AUTO) 7 % (0-12); NEUTROPHILS # (AUTO) 5.6 10^3/uL (1.8-7.8); NEUTROPHILS % (AUTO) 64 % (42-75); PLATELET COUNT 217 10^3/uL (130-400); WHITE BLOOD COUNT 8.8 10^3/uL (4.3-11.0)
[2021-11-17 05:34] LABS: ALBUMIN 3.3 GM/DL (3.2-4.5); POTASSIUM 3.9 MMOL/L (3.6-5.0)
[2021-11-17 05:37] LABS: TOTAL PROTEIN 5.6 GM/DL (6.4-8.2)
[2021-11-17 05:39] LABS: BILIRUBIN,TOTAL 0.5 MG/DL (0.1-1.0)
[2021-11-17 05:40] LABS: PHOSPHORUS 2.2 MG/DL (2.3-4.7)
[2021-11-17 05:41] LABS: CREATININE SERUM 0.72 MG/DL (0.60-1.30)
[2021-11-17] MEDS ORDERED: KCL 20 MEQ TAB (K-DUR) PO SCH (06:00)
[2021-11-17] MEDS ORDERED: POTASSIUM CL 10MEQ/50ML IVPB 50 ML IV SCH (06:00)
[2021-11-17] MEDS ORDERED: MAGNESIUM 1 GM/100 ML IVPB 100 ML IV SCH (06:00)
--- NOTE | 2021-11-17 08:34 | Tele-ICU Progress Note ---
Subjective Date Seen by a Provider: Nov 17, 2021 Time Seen by a Provider: 08:31 Subjective/Events-last exam Admitted for Sz, now on Kepra, PRN Valium, WBC down from 22 to 8, UDS neg, CT head normal, CXR ok, no further Sz, awake and alert Shoulder X Ray done as she may have fallen on shoulder after Sz was normal. Sepsis Event Evaluation Height, Weight, BMI Height: 5'5.00" Weight: 165lbs. 0.0oz. 74.287703eh; 41.67 BMI Method:Stated Focused Exam Lactate Level 11/16/21 12:25: Lactic Acid Level 13.34*H Exam Exam Patient acknowledged, consented, and participated in this virtual visit which was conducted using real time audio/video Vital Signs Date Time Temp Pulse Resp B/P (MAP) Pulse Ox O2 Delivery O2 Flow Rate FiO2 11/17/21 08:00 92 16 120/84 (96) 95 Room Air 11/17/21 07:00 75 24 120/81 (94) 96 Room Air 11/17/21 07:00 74 11/17/21 06:00 86 17 135/95 (105) 97 Room Air 11/17/21 05:00 86 28 134/89 (104) 96 Room Air 11/17/21 04:00 100 Room Air 11/17/21 04:00 71 14 103/79 (90) 97 Room Air 11/17/21 03:00 101 22 111/81 (92) 93 Room Air 11/17/21 02:00 71 23 120/80 (95) 96 Room Air 11/17/21 01:00 96 111/93 (101) 98 Room Air 11/17/21 01:00 96 11/17/21 00:13 100 Room Air 11/17/21 00:00 99 118/95 (103) 94 Room Air 11/16/21 23:00 86 123/86 (98) 95 Room Air 11/16/21 22:00 94 18 123/81 (91) 93 Room Air 11/16/21 21:30 97 29 129/83 (98) 94 Room Air 11/16/21 21:00 112 28 158/96 (115) 96 Room Air 11/16/21 20:00 115 151/105 (121) 95 Room Air 11/16/21 20:00 100 Room Air 11/16/21 19:45 118 18 143/99 (117) 95 Room Air 11/16/21 19:30 108 24 133/86 (106) 94 Room Air 11/16/21 19:15 105 17 145/88 (106) 95 Room Air 11/16/21 19:00 107 9 137/89 (107) 94 Room Air 11/16/21 19:00 107 11/16/21 18:00 111 22 148/95 (112) 94 Room Air 11/16/21 17:00 111 149/94 (112) 94 Room Air 11/16/21 16:00 106 139/77 (97) 96 Room Air 11/16/21 16:00 37.0 11/16/21 16:00 100 Room Air 11/16/21 15:30 120 163/98 (119) 98 Room Air 11/16/21 15:15 109 154/99 (117) 96 Room Air 11/16/21 15:00 112 147/96 (113) 99 Room Air 11/16/21 14:45 120 152/100 (117) 97 Room Air 11/16/21 14:30 115 140/88 (105) 95 Room Air 11/16/21 14:15 120 148/91 (110) 96 Room Air 11/16/21 14:04 134 97 11/16/21 14:00 118 142/92 (109) 95 Room Air 11/16/21 13:45 125 19 140/105 (117) 96 Room Air 11/16/21 13:30 125 21 158/89 (112) 95 Room Air 11/16/21 13:15 134 27 165/103 (123) 97 Room Air 11/16/21 13:00 131 22 146/91 (109) 95 Room Air 11/16/21 12:45 146 20 141/96 (111) 97 Room Air 11/16/21 12:30 Room Air 11/16/21 12:30 36.2 11/16/21 12:30 151 30 165/102 (123) 97 Room Air 11/16/21 12:21 149 11/16/21 12:20 154 150/91 (110) I & O 11/17/21 07:00 Intake Total 1135 ml Output Total 2625 ml Balance -1490 ml Height & Weight Height: 5'5.00" Weight: 165lbs. 0.0oz. 74.476115cw; 41.67 BMI Method:Stated General Appearance: No Apparent Distress, Anxious, Moderate Distress, Obese HEENT: PERRL/EOMI, Moist Mucous Membranes Neck: Full Range of Motion, Normal Inspection, Non Tender, Supple, Carotid Bruit Respiratory: Chest Non Tender, Lungs Clear, Normal Breath Sounds, No Accessory Muscle Use, No Respiratory Distress Cardiovascular: Regular Rate, Rhythm, No Murmur, Normal Peripheral Pulses, Tachycardia Gastrointestinal: normal bowel sounds, non tender, soft Extremity: Normal Capillary Refill, No Pedal Edema Neurologic/Psychiatric: Alert, Other (post ictal) Skin: Diaphoresis Lymphatic: No Adenopathy Results Lab Laboratory Tests 11/16/21 12:25 11/16/21 17:00 11/17/21 04:38 Assessment/Plan Assessment/Plan new onset Sz, will continue [place], Had MRI this am, was read as normal except for 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
--- NOTE | 2021-11-17 09:34 | Physical Therapy Progress Note ---
Therapy Progress Note Patient is independent with all gross motor skills and does not require skilled PT intervention. REJI SOLIS PT Nov 17, 2021 09:34
--- NOTE | 2021-11-17 10:03 | Diagnostic Imaging Report ---
INDICATION: Left shoulder pain AP, and oblique views of the left shoulder are obtained. No fracture or acute bony abnormality seen. Glenohumeral joint and AC joint appear unremarkable. IMPRESSION: Negative left shoulder. Dictated by: Dictated on workstation # [id number]
--- NOTE | 2021-11-17 10:23 | Occ Therapy Progress Note ---
Therapy Progress Note OT orders received and chart reviewed. Pt denies any self care concerns at this time. She reports she has been getting up and using the toilet without difficulty. 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 No skilled services warranted, OT will discharge. 1 visit Alejandra Anderson OT Nov 17, 2021 10:23
[2021-11-17] MEDS ORDERED: GADOTERATE 0.5 MMOL/ML (CLARISCAN) 20 ML VIAL IV ONE (11:00)
--- NOTE | 2021-11-17 11:51 | Diagnostic Imaging Report ---
PROCEDURE: MR imaging of the brain with and without contrast. TECHNIQUE: Multiplanar, multisequence MR imaging of the brain was performed with and without contrast. INDICATION: Seizure. COMPARISON: CT head without contrast 11/16/2021. FINDINGS: No abnormal intracranial signal. 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 Intracranial enhancement is otherwise unremarkable. No hemosiderin deposition. No restricted water diffusion. No evidence of intracranial hemorrhage. Normal sulcation and myelination. No evidence of a migrational anomaly. The hippocampi are symmetric in size and signal. Normal morphology including the major midline structures, sella, posterior fossa and cerebellar pontine angle. Normal intracranial flow voids. No hydrocephalus or extra-axial fluid collections. The orbits are negative. Mild mucosal thickening in the right maxillary sinus. The mastoids are clear. Normal bone marrow signal. IMPRESSION: 1. No acute intracranial MRI findings. No evidence of acute infarction or hemorrhage. 2. 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 Dictated by: Dictated on workstation # [id number]
[2021-11-17] MEDS ORDERED: LEVE500T99 PO (12:27)
--- NOTE | 2021-11-17 12:28 | Discharge Summary ---
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 It spontaneously resolved without Valium administration. MAIA VALENZUELA was called in order to obtain help with the situation. Patient was ultimately transitioned to a slide board onto the ICU bed and placed in ICU 2. IV fluids administered for tachycardia which is sinus type on EKG and Keppra was infused. eICU consulted after I updated in depth. Work-up will ensue. Discharge Summary Discharge Physical Examination Allergies: Coded Allergies: cephalexin (Verified Allergy, Intermediate, HIVES, 10/30/16) Vitals & I&Os Vital Signs Date Time Temp Pulse Resp B/P (MAP) Pulse Ox O2 Delivery O2 Flow Rate FiO2 11/17/21 16:00 36.7 90 20 123/84 (97) 96 Room Air General Appearance: Alert, Oriented X3, Cooperative Respiratory: Clear to Auscultation Cardiovascular: Regular Rate Neuro: Normal Gait, Normal Speech, Strength at 5/5 X4 Ext Psych/Mental Status: Mental Status NL Hospital Course Was the Problem List Reviewed?: Yes Comfort is a 41yo female who was being treated for a new onset seizure that occured while she was working here in the ICU. The seizure was immediately noticed by passing internal medicine team and she was quickly rolled to her side before any aspiration occurred. Her seizure resolved spontaneously after less than 2minutes. Comfort was started on an IV shortly after and received fluids and keppra. She remained in a confused post-ictal state for a few hours after the seizure. She was worked up extensively in order to locate a possible etiology but her MRI and labwork did not reveal any significant findings. She was also experiencing shoulder pain after her seizure and had a negative XR. By this morning her mental status was back to baseline and she was feeling well, with no focal neurologic deficits. Labs (last 24 hrs) Laboratory Tests 11/16/21 12:25: White Blood Count 22.6H, Red Blood Count 4.68, Hemoglobin 14.3, Hematocrit 43, Mean Corpuscular Volume 92, Mean Corpuscular Hemoglobin 31, Mean Corpuscular Hemoglobin Concent 33, Red Cell Distribution Width 13.0, Platelet Count 310, Mean Platelet Volume 10.4, Immature Granulocyte % (Auto) 1, Neutrophils (%) (Auto) 53, Lymphocytes (%) (Auto) 38, Monocytes (%) (Auto) 7, Eosinophils (%) (Auto) 1, Basophils (%) (Auto) 0, Neutrophils # (Auto) 12.0H, Lymphocytes # (Auto) 8.5H, Monocytes # (Auto) 1.6H, Eosinophils # (Auto) 0.2, Basophils # (Auto) 0.1, Immature Granulocyte # (Auto) 0.2H, Neutrophils % (Manual) 44, Lymphocytes % (Manual) 43, Monocytes % (Manual) 8, Eosinophils % (Manual) 0, Basophils % (Manual) 0, Band Neutrophils 5, Blood Morphology Comment NORMAL, Prothrombin Time 13.8, INR Comment 1.0, D-Dimer < 0.27, Sodium Level 136, Potassium Level 3.1L, Chloride Level 102, Carbon Dioxide Level 11L, Anion Gap 23H, Blood Urea Nitrogen 19H, Creatinine 0.91, Estimat Glomerular Filtration Rate 80, BUN/Creatinine Ratio 21, Glucose Level 128H, Lactic Acid Level 13.34*H, Calcium Level 9.3, Corrected Calcium 9.0, Magnesium Level 2.0, Total Bilirubin 0.4, Aspartate Amino Transf (AST/SGOT) 19, Alanine Aminotransferase (ALT/SGPT) 18, Alkaline Phosphatase 65, Troponin I < 0.028, Total Protein 7.6, Albumin 4.4, Procalcitonin 0.03, Serum Test, Qualitative NEGATIVE 11/16/21 12:41: Blood Gas Puncture Site R WRIST, Blood Gas Patient Temperature 36.5, Arterial Blood pH 7.28*L, Arterial Blood Partial Pressure CO2 28L, Arterial Blood Partial Pressure O2 81, Arterial Blood HCO3 13*L, Arterial Blood Total CO2 13.5L, Arterial Blood Oxygen Saturation 97, Arterial Blood Base Excess -12.8L, Link Test NA, Blood Gas Ventilator Setting NA, Blood Gas Inspired Oxygen NA 11/16/21 12:50: Urine Color YELLOW, Urine Clarity CLEAR, Urine pH 5.0, Urine Specific [place] 1.025H, Urine Protein TRACEH, Urine Glucose (UA) NEGATIVE, Urine Ketones NEGATIVE, Urine Nitrite NEGATIVE, Urine Bilirubin NEGATIVE, Urine Urobilinogen 0.2, Urine Leukocyte Esterase NEGATIVE, Urine RBC (Auto) TRACE-LH, Urine RBC RARE, Urine WBC NONE, Urine Squamous Epithelial Cells RARE, Urine Crystals NONE, Urine Bacteria NEGATIVE, Urine Casts NONE, Urine Mucus NEGATIVE, Urine Culture Indicated NO, Urine Opiates Screen NEGATIVE, Urine Oxycodone Screen NEGATIVE, Urine Methadone Screen NEGATIVE, Urine Propoxyphene Screen NEGATIVE, Urine Barbiturates Screen NEGATIVE, Ur Tricyclic Antidepressants Screen NEGATIVE, Urine Phencyclidine Screen NEGATIVE, Urine Amphetamines Screen NEGATIVE, Urine Methamphetamines Screen NEGATIVE, Urine Benzodiazepines Screen NEGATIVE, Urine Cocaine Screen NEGATIVE, Urine Cannabinoids Screen NEGATIVE 11/16/21 16:58: Glucometer 114H 11/16/21 17:00: Sodium Level 138, Potassium Level 3.9, Chloride Level 109H, Carbon Dioxide Level 20L, Anion Gap 9, Blood Urea Nitrogen 13, Creatinine 0.74, Estimat Glomerular Filtration Rate 103, BUN/Creatinine Ratio 18, Glucose Level 110H, Calcium Level 8.5 11/16/21 17:30: Blood Gas Puncture Site R RADIAL, Blood Gas Patient Temperature 37.0, Arterial Blood pH 7.36L, Arterial Blood Partial Pressure CO2 38, Arterial Blood Partial Pressure O2 49L, Arterial Blood HCO3 21L, Arterial Blood Total CO2 21.9, Arterial Blood Oxygen Saturation 83L, Arterial Blood Base Excess -3.7L, Link Test NA, Blood Gas Ventilator Setting NO, Blood Gas Inspired Oxygen UNK 11/17/21 04:38: Sodium Level 138, Potassium Level 3.9, Chloride Level 110H, Carbon Dioxide Level 19L, Anion Gap 9, Blood Urea Nitrogen 9, Creatinine 0.72, Estimat Glomerular Filtration Rate 106, BUN/Creatinine Ratio 13, Glucose Level 95, Calcium Level 8.0L, White Blood Count 8.8, Red Blood Count 4.00, Hemoglobin 12.0, Hematocrit 36, Mean Corpuscular Volume 89, Mean Corpuscular Hemoglobin 30, Mean Corpuscular Hemoglobin Concent 34, Red Cell Distribution Width 13.1, Platelet Count 217, Mean Platelet Volume 10.0, Immature Granulocyte % (Auto) 1, Neutrophils (%) (Auto) 64, Lymphocytes (%) (Auto) 28, Monocytes (%) (Auto) 7, Eosinophils (%) (Auto) 1, Basophils (%) (Auto) 0, Neutrophils # (Auto) 5.6, Lymphocytes # (Auto) 2.5, Monocytes # (Auto) 0.6, Eosinophils # (Auto) 0.0, Basophils # (Auto) 0.0, Immature Granulocyte # (Auto) 0.0, Corrected Calcium 8.6, Phosphorus Level 2.2L, Magnesium Level 2.0, Total Bilirubin 0.5, Aspartate Amino Transf (AST/SGOT) 22, Alanine Aminotransferase (ALT/SGPT) 16, Alkaline Phosphatase 52, Total Protein 5.6L, Albumin 3.3 11/17/21 12:33: Glucometer 129H 11/17/21 15:50: Glucometer 104 Microbiology 11/16/21 MRSA Screen - Final, Complete MRSA not isolated 11/16/21 Blood Culture - Preliminary, Resulted No growth Pending Labs Microbiology Date/Time Source Procedure Growth Status 11/16/21 12:50 Nasal MRSA Screen - Final MRSA not isolated Complete 11/16/21 12:25 Peripheral Iv/Heplock Blood Culture - Preliminary No growth Resulted 11/16/21 12:25 Peripheral Iv/[place]ock Blood Culture - Preliminary No growth Resulted Laboratory Tests 11/16/21 12:25: White Blood Count 22.6, Red Blood Count 4.68, Hemoglobin 14.3, Hematocrit 43, Mean Corpuscular Volume 92, Mean Corpuscular Hemoglobin 31, Mean Corpuscular Hem oglobin Concent 33, Red Cell Distribution Width 13.0, Platelet Count 310, Mean Platelet Volume 10.4, Immature Granulocyte % (Auto) 1, Neutrophils (%) (Auto) 53, Lymphocytes (%) (Auto) 38, Monocytes (%) (Auto) 7, Eosinophils (%) (Auto) 1, Basophils (%) (Auto) 0, Neutrophils # (Auto) 12.0, Lymphocytes # (Auto) 8.5, Monocytes # (Auto) 1.6, Eosinophils # (Auto) 0.2, Basophils # (Auto) 0.1, Immature Granulocyte # (Auto) 0.2, Neutrophils % (Manual) 44, Lymphocytes % (Manual) 43, Monocytes % (Manual) 8, Eosinophils % (Manual) 0, Basophils % (Manual) 0, Band Neutrophils 5, Blood Morphology Comment NORMAL, Prothrombin Time 13.8, INR Comment 1.0, D-Dimer < 0.27, Sodium Level 136, Potassium Level 3.1, Chloride Level 102, Carbon Dioxide Level 11, Anion Gap 23, Blood Urea Nitrogen 19, Creatinine 0.91, Estimat Glomerular Filtration Rate 80, BUN/Creatinine Ratio 21, Glucose Level 128, Lactic Acid Level 13.34, Calcium Level 9.3, Corrected Calcium 9.0, Magnesium Level 2.0, Total Bilirubin 0.4, Aspartate Amino Transf (AST/SGOT) 19, Alanine Aminotransferase (ALT/SGPT) 18, Alkaline Phosphatase 65, Troponin I < 0.028, Total Protein 7.6, Albumin 4.4, Procalcitonin 0.03, Serum Test, Qualitative NEGATIVE 11/16/21 12:41: Blood Gas Puncture Site R WRIST, Blood Gas Patient Temperature 36.5, Arterial Blood pH 7.28, Arterial Blood Partial Pressure CO2 28, Arterial Blood Partial Pressure O2 81, Arterial Blood HCO3 13, Arterial Blood Total CO2 13.5, Arterial Blood Oxygen Saturation 97, Arterial Blood Base Excess -12.8, Link Test NA, Blood Gas Ventilator Setting NA, Blood Gas Inspired Oxygen NA 11/16/21 12:50: Urine Color YELLOW, Urine Clarity CLEAR, Urine pH 5.0, Urine Specific [place] 1.025, Urine Protein TRACE, Urine Glucose (UA) NEGATIVE, Urine Ketones NEGATIVE, Urine Nitrite NEGATIVE, Urine Bilirubin NEGATIVE, Urine Urobilinogen 0.2, Urine Leukocyte Esterase NEGATIVE, Urine RBC (Auto) TRACE-L, Urine RBC RARE, Urine WBC NONE, Urine Squamous Epithelial Cells RARE, Urine Crystals NONE, Urine Bacteria NEGATIVE, Urine Casts NONE, Urine Mucus NEGATIVE, Urine Culture Indicated NO, Urine Opiates Screen NEGATIVE, Urine Oxycodone Screen NEGATIVE, Urine Methadone Screen NEGATIVE, Urine Propoxyphene Screen NEGATIVE, Urine Barbiturates Screen NEGATIVE, Ur Tricyclic Antidepressants Screen NEGATIVE, Urine Phencyclidine Screen NEGATIVE, Urine Amphetamines Screen NEGATIVE, Urine Methamphetamines Screen NEGATIVE, Urine Benzodiazepines Screen NEGATIVE, Urine Cocaine Screen NEGATIVE, Urine Cannabinoids Screen NEGATIVE 11/16/21 16:58: Glucometer 114 11/16/21 17:00: Sodium Level 138, Potassium Level 3.9, Chloride Level 109, Carbon Dioxide Level 20, Anion Gap 9, Blood Urea Nitrogen 13, Creatinine 0.74, Estimat Glomerular Filtration Rate 103, BUN/Creatinine Ratio 18, Glucose Level 110, Calcium Level 8.5 11/16/21 17:30: Blood Gas Puncture Site R RADIAL, Blood Gas Patient Temperature 37.0, Arterial Blood pH 7.36, Arterial Blood Partial Pressure CO2 38, Arterial Blood Partial Pressure O2 49, Arterial Blood HCO3 21, Arterial Blood Total CO2 21.9, Arterial Blood Oxygen Saturation 83, Arterial Blood Base Excess -3.7, Link Test NA, Blood Gas Ventilator Setting NO, Blood Gas Inspired Oxygen UNK 11/17/21 04:38: Sodium Level 138, Potassium Level 3.9, Chloride Level 110, Carbon Dioxide Level 19, Anion Gap 9, Blood Urea Nitrogen 9, Creatinine 0.72, Estimat Glomerular Filtration Rate 106, BUN/Creatinine Ratio 13, Glucose Level 95, Calcium Level 8.0, White Blood Count 8.8, Red Blood Count 4.00, Hemoglobin 12.0, Hematocrit 36, Mean Corpuscular Volume 89, Mean Corpuscular Hemoglobin 30, Mean Corpuscular Hemoglobin Concent 34, Red Cell Distribution Width 13.1, Platelet Count 217, Mean Platelet Volume 10.0, Immature Granulocyte % (Auto) 1, Neutrophils (%) (Auto) 64, Lymphocytes (%) (Auto) 28, Monocytes (%) (Auto) 7, Eosinophils (%) (A uto) 1, Basophils (%) (Auto) 0, Neutrophils # (Auto) 5.6, Lymphocytes # (Auto) 2.5, Monocytes # (Auto) 0.6, Eosinophils # (Auto) 0.0, Basophils # (Auto) 0.0, Immature Granulocyte # (Auto) 0.0, Corrected Calcium 8.6, Phosphorus Level 2.2, Magnesium Level 2.0, Total Bilirubin 0.5, Aspartate Amino Transf (AST/SGOT) 22, Alanine Aminotransferase (ALT/SGPT) 16, Alkaline Phosphatase 52, Total Protein 5.6, Albumin 3.3 11/17/21 12:33: Glucometer 129 11/17/21 15:50: Glucometer 104 Discharge Home Medications: Active Scripts Active Keppra (Levetiracetam) 500 Mg Tablet 500 Mg PO BID Reported Ibuprofen 200 Mg Capsule 400-800 Mg PO Q8H PRN Tylenol Extra Strength (Acetaminophen) 500 Mg Tablet 500-1,000 Mg PO Q8H PRN Benadryl (Diphenhydramine HCl) 25 Mg Capsule 25-50 Mg PO Q8H PRN Eszopiclone 1 Mg Tablet 1 Mg PO HS PRN Vitamin D2 (Ergocalciferol (Vitamin D2)) 1,250 Mcg (10589 Unit) Capsule 1,250 Mcg PO WEEK Baclofen 10 Mg Tablet 10 Mg PO TID PRN Alprazolam 0.5 Mg Tablet 0.5 Mg PO DAILY PRN Instructions to patient/family Please see electronic discharge instructions given to patient. Diagnosis/Problems Diagnosis/Problems (1) Seizures CARLOS ARITA DO Nov 17, 2021 12:28
[2021-11-17] MEDS ORDERED: HYDROcodone/APAP 5 MG/325 MG (LORTAB) TAB PO PRN (12:30)
[2021-11-17] MEDS ORDERED: BACLOFEN 10 MG (LIORESAL) TAB PO PRN (12:30)
[2021-11-17] MEDS ORDERED: VITAMIN D2 1.25 MG (50,000 UNITS) CAP PO SCH ×2 (12:30→16:45)
[2021-11-17] MEDS ORDERED: IBUPROFEN PO PRN (12:30)
[2021-11-17] MEDS ORDERED: NON-FORMULARY MEDICATION 1 EA EA (Eszopiclone 1 MG) PO PRN ×2 (12:30→16:45)
[2021-11-17] MEDS ORDERED: ALPRAZolam 0.5 MG (XANAX) TAB PO PRN (12:30)
[2021-11-17] MEDS ORDERED: ACETAMINOPHEN 500 MG TAB (TYLENOL) PO PRN (12:30)
[2021-11-17] MEDS ORDERED: NON-FORMULARY MEDICATION 1 EA EA (Diphenhydramine HCl (Benadryl) 0 MG) PO PRN ×2 (12:30→16:45)
[2021-11-17] MEDS ORDERED: HYDROcodone/APAP 5 MG/325 MG (LORTAB) TAB PO NR (12:45)
[2021-11-17] MEDS ORDERED: IBUPROFEN 800 MG (MOTRIN) TAB PO PRN (15:00)
--- NOTE | 2021-11-17 15:37 | Progress Note ---
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 The seizure was immediately noticed by passing internal medicine team and she was quickly rolled to her side before any aspiration occurred. Her seizure resolved spontaneously after less than 2minutes. Comfort was started on an IV shortly after and received fluids and keppra. She remained in a confused post-ictal state for a few hours after the seizure. She was worked up extensively in order to locate a possible etiology but her MRI and labwork did not reveal any significant findings. She was also experiencing shoulder pain after her seizure and had a negative XR. By this morning her mental status was back to baseline and she was feeling well, with no focal neurologic deficits. NELIDA ARITA DO 11/17/21 2100: Supervisory-Addendum Brief Verification & Attestation Participated in pt care: history, MDM, physical Personally performed: exam, history, MDM, supervision of care Care discussed with: Medical Student Procedures: n/a Results interpretation: Verified all documentation Verification and Attestation of Medical Student E/M Service A medical student performed and documented this service in my presence. I reviewed and verified all information documented by the medical student and made modifications to such information, when appropriate. I personally performed the physical exam and medical decision making. Nelida Arita, Nov 17, 2021,21:00 GRUPO SO Nov 17, 2021 15:37 NELIDA ARITA DO Nov 17, 2021 21:00
[2021-11-21] MEDS ORDERED: VITAMIN D2 1.25 MG (50,000 UNITS) CAP PO SCH (16:00)
[2021-11-21] MEDS ORDERED: NON-FORMULARY MEDICATION 1 EA EA (Eszopiclone 1 MG) PO PRN (16:00)
[2021-11-21] MEDS ORDERED: NON-FORMULARY MEDICATION 1 EA EA (Diphenhydramine HCl (Benadryl) 0 MG) PO PRN (16:00)
== END 2021-11-17 16:00 | disposition home or self-care (01) ==
LOC: UNDOADMOB 12:25 → ICU 12:25 → INTOOBSV 12:25 → ICU 14:00 → 4TH 11-17 13:58 → UNDODISOB 11-17 16:31
PROVIDERS: ADMIT Internal Medicine; ATTEND Internal Medicine
DX: R56.9 Unspecified convulsions (principal); E87.5 Hyperkalemia; R74.02 Elevation of levels of lactic acid dehydrogenase [LDH]; Z79.899 Other long term (current) drug therapy; Z86.16 Personal history of COVID-19; E11.9 Type 2 diabetes mellitus without complications; Z79.4 Long term (current) use of insulin
CPT/HCPCS: 70450; 70553; 71045; 73030; 80048; 80053 ×2; 80306; 81000; 82805; 82947 ×2; 83605; 83735 ×2; 84100; 84145; 84484; 84703; 85007; 85025; 85027; 85379; 85610; 87040; 87081; 93005; 93306; 96361; 96366 ×2; 96374; 96375; 96376; G0378 ×2; G0379; 36415

== ENCOUNTER → 2021-11-23 | Outpatient (CLI) | payer OTHER ==
[~2021-11-23] MED LIST changes: +ACET-2267 PO; +BACL10TA PO; +DIPH25CA79 PO; +ERGO1250 PO; +ESZO1TAB12 PO; +IBUP-2185 PO; +LEVE500T99 PO
--- NOTE | 2021-11-23 16:42 | Diagnostic Imaging Report ---
EXAMINATION: Left shoulder radiographs, 3 views. COMPARISON: November 17, 2021. HISTORY: 41-year-old female, left shoulder pain. FINDINGS: The humeral head is normally positioned relative to the glenoid. The glenohumeral joint space is well-maintained. The acromioclavicular joint is normally aligned. There are no acromioclavicular degenerative changes. There is no identified acute fracture. IMPRESSION: Unremarkable radiographs of the left shoulder. Dictated by: Dictated on workstation # [id number]
== END ==
LOC: RAD FS 15:54
PROVIDERS: ATTEND Nurse Practitioner Family
DX: M25.512 Pain in left shoulder (principal)
CPT/HCPCS: 73030